=== PATIENT | female | born 1975 | race Caucasian/White ===

== ENCOUNTER 2018-02-02 18:58 | Emergency (ER) | payer SELFPAY ==
[~2018-02-02] VITALS: Ht 170.2 cm; Wt 75.9 kg
[2018-02-02 19:06] VITALS: BP 194/91
[2018-02-02] MEDS ORDERED: METF500T PO (19:36)
[2018-02-02] MEDS ORDERED: LISI30TA4 PO (19:50)
[2018-02-02] MEDS ORDERED: BLOO1EAC70 MC (19:58)
== END 2018-02-02 20:00 | disposition home or self-care (01) ==
LOC: ER 18:59
DX: E11.9 Type 2 diabetes mellitus without complications (principal); I10 Essential (primary) hypertension; Z79.84 Long term (current) use of oral hypoglycemic drugs; Z79.899 Other long term (current) drug therapy; Z56.0 Unemployment, unspecified; Z60.2 Problems related to living alone
CPT/HCPCS: 82948; 99283

== ENCOUNTER 2018-02-24 10:13 | Emergency (ER) | payer MEDICARE, MEDICAID ==
[~2018-02-24] VITALS: Ht 172.7 cm; Wt 74.1 kg
[~2018-02-24 10:13] MED LIST: BLOO1EAC70 MC; LISI30TA4 PO
[2018-02-24 12:24] LABS: ALANINE AMINOTRANSFERASE 19 U/L (12-78); ALBUMIN 3.9 G/DL (3.4-5.0); ALKALINE PHOSPHATASE 80 IU/L (46-116); ANION GAP 8 (8-16); ASPARTATE AMINO TRANSFERASE 15 U/L (10-37); BILIRUBIN,TOTAL 0.3 MG/DL (0.1-1.0); BLOOD UREA NITROGEN 12 MG/DL (7-18); BUN/CREATININE RATIO 20.7 (6.6-38.0); CALCIUM 8.9 MG/DL (8.5-10.1); CHLORIDE 101 MMOL/L (99-107); CREATININE 0.58 MG/DL (0.40-0.90); GLUCOSE 84 MG/DL (70-104); POTASSIUM 3.9 MMOL/L (3.5-5.1); SODIUM 136 MMOL/L (135-145); TOTAL CARBON DIOXIDE 27.5 MMOL/L (24-32); TOTAL PROTEIN 7.8 G/DL (6.4-8.2); eGFR > 90 ML/MIN
[2018-02-24 12:46] LABS: BASOPHILS % (AUTO) 0.2 % (0-1); EOSINOPHILS # (AUTO) 0.2 X10'3 (0-0.9); EOSINOPHILS % (AUTO) 2.5 % (0-6); HEMATOCRIT 35.6 % (35.0-45.0); HEMOGLOBIN 11.5 g/dl (12.0-16.0); LYMPHOCYTES # (AUTO) 2.3 X10'3 (1.1-4.8); LYMPHOCYTES % (AUTO) 35.1 % (21-51); MEAN CORPUSCULAR HEMOGLOBIN 22.8 PG (27.0-31.0); MEAN CORPUSCULAR HGB CONC 32.3 % (33.0-36.5); MEAN CORPUSCULAR VOLUME 70.4 FL (78-98); MEAN PLATELET VOLUME 8.5 FL (7.4-10.4); MONOCYTES # (AUTO) 0.5 X10'3 (0-0.9); MONOCYTES % (AUTO) 7.2 % (2-12); NEUTROPHILS # (AUTO) 3.6 X10'3 (1.8-7.7); PLATELET COUNT 328 X10'3 (140-440); RED BLOOD COUNT 5.06 X10'6 (4.20-5.60); RED CELL DISTRIBUTION WIDTH 26.9 % (11.5-14.5); WHITE BLOOD COUNT 6.6 X10'3 (4.5-11.0)
[2018-02-24 13:09] LABS: ANISOCYTOSIS 3+; ELLIPTOCYTES FEW; PLATELET ESTIMATE NORMAL
[2018-02-24 13:23] VITALS: BP 151/79
== END 2018-02-24 13:28 | disposition home or self-care (01) ==
LOC: ER 10:14
DX: M54.12 Radiculopathy, cervical region (principal); M79.602 Pain in left arm; I10 Essential (primary) hypertension; E11.9 Type 2 diabetes mellitus without complications; Z56.0 Unemployment, unspecified; Z79.899 Other long term (current) drug therapy
CPT/HCPCS: 36415; 71045; 80053; 83735; 83880; 84484; 85025; 93005; 99285

== ENCOUNTER 2018-04-21 11:11 | Inpatient (IN) | payer MEDICARE, MEDICAID ==
[2018-04-21] VITALS (12 sets, daily range): BP systolic 106–142; BP diastolic 65–83
[~2018-04-21] VITALS: Ht 172.7 cm; Wt 87.4 kg
[2018-04-21] MEDS ORDERED: LIDOcaine/PRILOcaine 5gm cream TP ONE (12:05)
[2018-04-21] MEDS ORDERED: diphenhydrAMINE 25mg capsule PO ONE (12:05)
[2018-04-21] MEDS ORDERED: normal saline 1000ml 1,000 ML IV SCH (12:05)
[2018-04-21] MEDS ORDERED: LORazepam 0.5 MG tablet PO ONE (12:05)
[2018-04-21] MEDS ORDERED: METF500T PO (13:03)
[2018-04-21] MEDS ORDERED: ASPI81TA52 PO (13:03)
[2018-04-21] MEDS ORDERED: ATOR40TA3 PO (13:03)
[2018-04-21] MEDS ORDERED: Cephalexin PO (13:03)
[2018-04-21] MEDS ORDERED: FERR325T28 PO (13:03)
[2018-04-21] MEDS ORDERED: METO1TAB38 PO (13:03)
[2018-04-21] MEDS ORDERED: midazolam 2 mg/2 ml injection ONE (14:45)
[2018-04-21] MEDS ORDERED: iohexol 350MG/ML 100ml bottle IV ONE (14:45)
[2018-04-21] MEDS ORDERED: LIDOcaine 1% 30ml preserv. free vial ONE (14:45)
[2018-04-21] MEDS ORDERED: fentaNYL/PF 50MCG/1 ML 2ML syringe ONE (14:45)
[2018-04-21] MEDS ORDERED: heparin 1,000unit/ml 10ml vial 10 ML ONE (14:55)
[2018-04-21] MEDS ORDERED: nitroGLYCERIN-Tridil 50MG/D5W 250 ML IV ONE (14:55)
[2018-04-21] MEDS ORDERED: verapamil 2.5 mg/ml inj IV ONE (15:00)
[2018-04-21] MEDS ORDERED: nitroGLYCERIN 0.4mg SUBLingual tab SL PRN (16:00)
[2018-04-21] MEDS ORDERED: HYDROcodone/acetaminophen 5mg/325mg tablet PO PRN (16:00)
[2018-04-21] MEDS ORDERED: HYDROcodone/acetaminophen 10/325mg tab PO PRN (16:00)
[2018-04-21] MEDS ORDERED: proCHLORperazine 10 MG/2 ml inj IV PRN (16:00)
[2018-04-21] MEDS ORDERED: OXAZEpam 15mg capsule PO PRN (16:00)
[2018-04-21] MEDS ORDERED: ondansetron/PF 4mg/2ml inj IV PRN ×2 (16:00→18:05)
[2018-04-21] MEDS ORDERED: dextrose 50%-water 50ml dispensing syringe IV PRN ×3 (17:55→18:15)
[2018-04-21] MEDS ORDERED: MESSAGE TO NURSING PO ONE ×4 (17:55)
[2018-04-21] MEDS ORDERED: LISI30TA4 PO (17:59)
[2018-04-21] MEDS ORDERED: diphenhydrAMINE 25mg capsule PO PRN (18:05)
[2018-04-21] MEDS ORDERED: dextrose ORAL solution 15 GM/59 ML bottle PO PRN ×2 (18:15)
[2018-04-21] MEDS ORDERED: glucagon, human recombinant 1mg kit SUBCUT PRN (18:15)
[2018-04-21] MEDS ORDERED: MESSAGE TO PHARMACY PO ONE (18:15)
[2018-04-21] MEDS ORDERED: insulin Lispro (HumaLOG) vial - multi-dose SQ SCH (18:15)
[2018-04-21] MEDS ORDERED: METO-395 PO (18:29)
[2018-04-21 19:01] LABS: ALBUMIN 3.6 G/DL (3.4-5.0); ANION GAP 7 (8-16); BLOOD UREA NITROGEN 16 MG/DL (7-18); BUN/CREATININE RATIO 19.3 (6.6-38.0); CALCIUM 8.6 MG/DL (8.5-10.1); CHLORIDE 103 MMOL/L (99-107); CREATININE 0.83 MG/DL (0.40-0.90); GLUCOSE 263 MG/DL (70-104); POTASSIUM 3.9 MMOL/L (3.5-5.1); SODIUM 140 MMOL/L (135-145); eGFR 76 ML/MIN
[2018-04-21 19:06] LABS: PARTIAL THROMBOPLASTIN TIME 29 SECONDS (22-32)
[2018-04-21 19:07] LABS: HEMOGLOBIN A1C 5.7 % (4.5-6.2)
[2018-04-21] MEDS ORDERED: insulin glargine (Lantus) pen - multi-dose SQ SCH (21:00)
[2018-04-21 21:29] LABS: HEMATOCRIT 38.7 % (35.0-45.0); MEAN CORPUSCULAR HEMOGLOBIN 27.1 PG (27.0-31.0); MEAN CORPUSCULAR HGB CONC 33.6 % (33.0-36.5); MEAN CORPUSCULAR VOLUME 80.7 FL (78-98); MEAN PLATELET VOLUME 7.6 FL (7.4-10.4); PLATELET COUNT 339 X10'3 (140-440); RED CELL DISTRIBUTION WIDTH 25.1 % (11.5-14.5); WHITE BLOOD COUNT 7.2 X10'3 (4.5-11.0)
[2018-04-21 22:00] LABS: ABG BASE EXCESS -0.2 mmol/L (-2.0-3.0); ABG OXYGEN SATURATION 96.4 % (95-98); ABG PH (T) 7.419 (7.350-7.450); ABG PO2 (T) 85.3 mmHg (83-108); ALLEN'S TEST Positive; FCOHb 0.4 % (0.5-1.5); FMetHb 0.1 % (0.3-1.12); FO2Hb 95.9 % (94-100); TOTAL HEMOGLOBIN 13.6 G/dl (12.0-16.0)
[2018-04-22] VITALS (11 sets, daily range): BP systolic 92–127; BP diastolic 46–72
[2018-04-22] MEDS: mupirocin 2% nasal ointment 1gm UD NS SCH ×3 (04:44→20:27)
[2018-04-22] MEDS ORDERED: ceFAZolin 1000mg inj ONE (05:11)
[2018-04-22] MEDS ORDERED: cefazolin/dext.iso 2gm/50ml 50 ML IV ONE (05:30)
[2018-04-22] MEDS ORDERED: vancomycin/NS 1 GM ADD-VANTAGE 250 ML IV ONE (05:30)
[2018-04-22] MEDS ORDERED: famotidine 20mg tablet PO ONE (06:00)
[2018-04-22] MEDS ORDERED: LORazepam 2 mg/ml vial IV ONE (06:00)
[2018-04-22 07:09] LABS: ALBUMIN 3.5 G/DL (3.4-5.0); ANION GAP 9 (8-16); BLOOD UREA NITROGEN 14 MG/DL (7-18); BUN/CREATININE RATIO 20.3 (6.6-38.0); CALCIUM 8.6 MG/DL (8.5-10.1); CHLORIDE 105 MMOL/L (99-107); CREATININE 0.69 MG/DL (0.40-0.90); GLUCOSE 86 MG/DL (70-104); POTASSIUM 4.3 MMOL/L (3.5-5.1); SODIUM 141 MMOL/L (135-145); TOTAL CARBON DIOXIDE 27.3 MMOL/L (24-32); eGFR > 90 ML/MIN
[2018-04-22] MEDS ORDERED: metoprolol succinate 25mg (24-HOUR) SR. Tablet PO SCH (08:00)
[2018-04-22] MEDS ORDERED: aspirin 81mg tablet.DR PO SCH (08:00)
[2018-04-22] MEDS ORDERED: atorvastatin 20mg tablet PO SCH (08:00)
[2018-04-22] MEDS ORDERED: lisinopril 10 MG tablet PO SCH (08:00)
[2018-04-22] MEDS ORDERED: ferrous sulfate 325mg tablet PO SCH (08:00)
[2018-04-22] MEDS ORDERED: heparin 10,000 units/1 ML INJ ONE ×2 (09:00→11:00)
[2018-04-22] MEDS: insulin Lispro (HumaLOG) vial - multi-dose SQ SCH ×3 (09:00→18:00)
[2018-04-22] MEDS ORDERED: papaverine 30 mg/ml 2ml inj. ONE ×2 (09:00)
[2018-04-22 09:22] LABS: BASOPHILS # (AUTO) 0.1 X10'3 (0-0.2); BASOPHILS % (AUTO) 0.7 % (0-1); EOSINOPHILS # (AUTO) 0.3 X10'3 (0-0.9); EOSINOPHILS % (AUTO) 3.9 % (0-6); HEMATOCRIT 42.3 % (35.0-45.0); HEMOGLOBIN 14.1 g/dl (12.0-16.0); LYMPHOCYTES # (AUTO) 3.2 X10'3 (1.1-4.8); MEAN CORPUSCULAR HEMOGLOBIN 27.2 PG (27.0-31.0); MEAN CORPUSCULAR HGB CONC 33.3 % (33.0-36.5); MEAN CORPUSCULAR VOLUME 81.7 FL (78-98); MONOCYTES # (AUTO) 0.6 X10'3 (0-0.9); MONOCYTES % (AUTO) 8.5 % (2-12); NEUTROPHILS # (AUTO) 3.3 X10'3 (1.8-7.7); NEUTROPHILS % (AUTO) 43.9 % (42-75); RED BLOOD COUNT 5.18 X10'6 (4.20-5.60); RED CELL DISTRIBUTION WIDTH 25.8 % (11.5-14.5)
[2018-04-22 09:25] LABS: PLATELET COUNT 321 X10'3 (140-440); WHITE BLOOD COUNT 5.1 X10'3 (4.5-11.0)
[2018-04-22] MEDS ORDERED: MESSAGE TO NURSING PO ONE (10:00)
[2018-04-22 10:33] LABS: PLATELET ESTIMATE NORMAL
[2018-04-22 10:34] LABS: ANISOCYTOSIS 3+
[2018-04-22] MEDS ORDERED: cefazolin/dext.iso 2gm/100ml 100 ML IV ONE (10:45)
[2018-04-22] MEDS ORDERED: LIDOcaine 2% (20 mg/ml) 5ml cardiac syringe ONE (11:00)
[2018-04-22] MEDS ORDERED: albumin (human) 25% 100 ML IV solution IV ONE (11:00)
[2018-04-22] MEDS ORDERED: sodium bicarbonate (8.4%) 1 mEq/ml syringe ONE (11:00)
[2018-04-22] MEDS ORDERED: magnesium sulf 1 GM/2 ML ONE (11:00)
[2018-04-22] MEDS ORDERED: potassium Cl 2 mEq/ml inj IV ONE (11:00)
[2018-04-22] MEDS ORDERED: phenylephrine 10mg/ml inj. ONE ×2 (11:00→13:21)
[2018-04-22] MEDS ORDERED: aminocaproic acid 250 MG/1 ML inj. ONE ×2 (11:00→11:45)
[2018-04-22] MEDS ORDERED: calcium chloride 100 MG/1 ML inj IV ONE (11:00)
[2018-04-22] MEDS ORDERED: heparin 1,000 units/ml 10ml inj ONE (11:00)
[2018-04-22] MEDS ORDERED: MIDAZolam 1mg/ml 10ml vial ONE (11:12)
[2018-04-22] MEDS ORDERED: SUFENTANIL CITRATE 50 MCG/ML 2ml ampule IV ONE (11:12)
[2018-04-22] MEDS ORDERED: propofol inj 20 ML IV ONE (11:13)
[2018-04-22] MEDS ORDERED: pancuronium br 1mg/ml inj IV ONE (11:13)
[2018-04-22] MEDS ORDERED: LIDOcaine 2% (20mg/ml) 5ml vial ONE (11:13)
[2018-04-22] MEDS ORDERED: sevoflurane 250ml liquid IH ONE (11:45)
[2018-04-22] MEDS ORDERED: protamine sulf. 10mg/ml inj. IV ONE (11:45)
[2018-04-22 12:35] LABS: ABG BASE EXCESS -2.3 mmol/L (-2.0-3.0); ABG HCO3 22.7 mmol/L (22.0-26.0); ABG OXYGEN SATURATION 99.4 % (95-98); ABG PCO2 40.1 mmHg (35.0-45.0); ABG PH 7.371 (7.350-7.450); ABG PO2 374.6 mmHg (60.0-100.0); CL (ABG) 110 mmol/L (99-107); FCOHb 0.2 % (0.5-1.5); FMetHb 0.2 % (0.3-1.12); GLUCOSE (ABG) 84 mg/dl (70-105); IONIZED CA (ABG) 1.12 mmol/L (1.03-1.32); NA (ABG) 136 mmol/L (135-145); TOTAL HEMOGLOBIN 13.1 G/dl (12.0-16.0)
[2018-04-22] MEDS ORDERED: heparin 10,000 units/1 ML INJ IR ONE (12:56)
[2018-04-22] MEDS ORDERED: papaverine 30 mg/ml 2ml inj. IA ONE (12:57)
[2018-04-22 13:46] LABS: ABG BASE EXCESS VENOUS -8.8 mmol/L; ABG HCO3 VENOUS 16.3 mmol/L; ABG PCO2 VENOUS 32.1 mmHg; ABG PO2 VENOUS 49.9 mmHg; CL (ABG) 106 mmol/L (99-107); FCOHb VENOUS 0.3 %; FHHb VENOUS 16.9 %; FMetHb VENOUS 0.5 %; FO2Hb VENOUS 82.3 %; GLUCOSE (ABG) 63 mg/dl (70-105); IONIZED CA (ABG) 1.08 mmol/L (1.03-1.32); K (ABG) 4.1 mmol/L (3.3-5.1); NA (ABG) 130 mmol/L (135-145); TOTAL HEMOGLOBIN 9.2 G/dl (12.0-16.0)
[2018-04-22 14:10] LABS: ABG BASE EXCESS -2.1 mmol/L (-2.0-3.0); ABG HCO3 22.8 mmol/L (22.0-26.0); ABG OXYGEN SATURATION 98.8 % (95-98); ABG PCO2 39.2 mmHg (35.0-45.0); ABG PH 7.382 (7.350-7.450); ABG PO2 348.4 mmHg (60.0-100.0); CL (ABG) 103 mmol/L (99-107); FCOHb 0.3 % (0.5-1.5); FMetHb 0.3 % (0.3-1.12); FO2Hb 98.2 % (94-100); GLUCOSE (ABG) 120 mg/dl (70-105); IONIZED CA (ABG) 0.97 mmol/L (1.03-1.32); K (ABG) 4.9 mmol/L (3.3-5.1); NA (ABG) 130 mmol/L (135-145); TOTAL HEMOGLOBIN 9.7 G/dl (12.0-16.0)
[2018-04-22 14:35] LABS: ABG HCO3 23.6 mmol/L (22.0-26.0); ABG OXYGEN SATURATION 98.9 % (95-98); ABG PCO2 44.3 mmHg (35.0-45.0); ABG PH 7.345 (7.350-7.450); ABG PO2 293.6 mmHg (60.0-100.0); CL (ABG) 106 mmol/L (99-107); FCOHb 0.3 % (0.5-1.5); FMetHb 0.3 % (0.3-1.12); FO2Hb 98.3 % (94-100); GLUCOSE (ABG) 157 mg/dl (70-105); IONIZED CA (ABG) 1.03 mmol/L (1.03-1.32); K (ABG) 4.7 mmol/L (3.3-5.1); NA (ABG) 132 mmol/L (135-145); TOTAL HEMOGLOBIN 10.1 G/dl (12.0-16.0)
[2018-04-22] MEDS ORDERED: rocuronium 10mg/ml inj IV ONE (14:45)
[2018-04-22 15:05] LABS: ACT @ 1.70 U 289 SEC (193-297); ACT @ 2.84 U 394 SEC (260-420); BASELINE ACT 151 SEC (101-148); PATIENT WEIGHT 84.0k KG
[2018-04-22 15:06] LABS: ABG BASE EXCESS 1.3 mmol/L (-2.0-3.0); ABG OXYGEN SATURATION 98.8 % (95-98); ABG PCO2 48.6 mmHg (35.0-45.0); ABG PH 7.363 (7.350-7.450); ABG PO2 271.2 mmHg (60.0-100.0); CL (ABG) 103 mmol/L (99-107); FCOHb 0.3 % (0.5-1.5); FMetHb 0.5 % (0.3-1.12); GLUCOSE (ABG) 200 mg/dl (70-105); IONIZED CA (ABG) 1.36 mmol/L (1.03-1.32); K (ABG) 4.7 mmol/L (3.3-5.1); NA (ABG) 132 mmol/L (135-145); TOTAL HEMOGLOBIN 9.1 G/dl (12.0-16.0)
[2018-04-22 15:46] LABS: ABG BASE EXCESS VENOUS 0.9 mmol/L; ABG HCO3 VENOUS 27.6 mmol/L; ABG PCO2 VENOUS 54.1 mmHg; ABG PO2 VENOUS 57.2 mmHg; CL (ABG) 106 mmol/L (99-107); FCOHb VENOUS 0.3 %; FHHb VENOUS 12.6 %; FMetHb VENOUS 0.3 %; FO2Hb VENOUS 86.8 %; GLUCOSE (ABG) 200 mg/dl (70-105); IONIZED CA (ABG) 1.16 mmol/L (1.03-1.32); K (ABG) 4.3 mmol/L (3.3-5.1); NA (ABG) 134 mmol/L (135-145); TOTAL HEMOGLOBIN 10.2 G/dl (12.0-16.0)
[2018-04-22] MEDS ORDERED: metoclopramide 5 mg/ml inj IV PRN (16:10)
[2018-04-22] MEDS ORDERED: sodium phosphate inj. 30 MMOL in dextrose 5%-water 250 ML IV PRN (16:10)
[2018-04-22] MEDS ORDERED: nitroGLYCERIN-Tridil 50MG/D5W 250 ML IV PRN (16:10)
[2018-04-22] MEDS ORDERED: sodium phosphate inj. 15 MMOL in dextrose 5%-water 150 ML IV PRN (16:10)
[2018-04-22] MEDS ORDERED: insulin regular, human inj. 100 UNITS in normal saline 100ml IV soln 100 ML IV SCH ×2 (16:10)
[2018-04-22] MEDS: sodium chloride 0.45% 1,000 ML IV SCH (16:10)
[2018-04-22] MEDS ORDERED: HYDROcodone/acetaminophen 10/325mg tab PO PRN (16:10)
[2018-04-22] MEDS ORDERED: DOPamine 400mg/D5W 250ml 250 ML IV PRN (16:10)
[2018-04-22] MEDS ORDERED: ondansetron/PF 4mg/2ml inj IV PRN (16:10)
[2018-04-22] MEDS ORDERED: Neutra Phos packet PO PRN (16:10)
[2018-04-22] MEDS ORDERED: dextrose 50%-water 50ml dispensing syringe IV PRN (16:10)
[2018-04-22] MEDS ORDERED: pantoprazole 40 MG vial IV ONE (16:10)
[2018-04-22] MEDS ORDERED: acetaminophen 325mg tablet PO PRN (16:10)
[2018-04-22] MEDS ORDERED: normal saline 250ml IV soln 250 ML IV PRN (16:10)
[2018-04-22] MEDS ORDERED: niCARDipine-NS 40mg/200ml IVPB 200 ML IV PRN (16:10)
[2018-04-22] MEDS ORDERED: morphine 4 MG/ML inj SYRINge IV PRN (16:10)
[2018-04-22] MEDS ORDERED: potassium Cl 20mEq/100mL bag 100 ML IV PRN (16:10)
[2018-04-22] MEDS ORDERED: magnesium hydroxide 30ml (MOM) UD suspension PO PRN (16:10)
[2018-04-22 16:31] LABS: ABG BASE EXCESS -2.9 mmol/L (-2.0-3.0); ABG HCO3 23.1 mmol/L (22.0-26.0); ABG PH (T) 7.329 (7.350-7.450); ABG PO2 (T) 197.4 mmHg (83-108); FCOHb 0.3 % (0.5-1.5); FMetHb 0.4 % (0.3-1.12); FO2Hb 98.3 % (94-100); MINUTE VOLUME 9 L/min; PEEP 5 cm H2O; RESPIRATORY RATE 12 b/min; RESPIRATORY RATE (OBSERVED) 12 b/min; TIDAL VOLUME 600 mL; TOTAL HEMOGLOBIN 13.1 G/dl (12.0-16.0)
[2018-04-22] MEDS ORDERED: morphine 4 MG/ML inj SYRINge ONE (16:36)
[2018-04-22 17:08] LABS: ALANINE AMINOTRANSFERASE 22 U/L (12-78); ALBUMIN 2.8 G/DL (3.4-5.0); ALBUMIN/GLOBULIN RATIO 1.1 (1.1-1.5); ALKALINE PHOSPHATASE 46 IU/L (46-116); ANION GAP 10 (8-16); ASPARTATE AMINO TRANSFERASE 29 U/L (10-37); BILIRUBIN,TOTAL 0.3 MG/DL (0.1-1.0); BLOOD UREA NITROGEN 12 MG/DL (7-18); BUN/CREATININE RATIO 14.8 (6.6-38.0); CHLORIDE 107 MMOL/L (99-107); CREATININE 0.81 MG/DL (0.40-0.90); GLUCOSE 151 MG/DL (70-104); MAGNESIUM 2.7 MG/DL (1.5-2.4); PHOSPHORUS 4.1 MG/DL (2.3-4.5); SODIUM 143 MMOL/L (135-145); TOTAL CARBON DIOXIDE 25.8 MMOL/L (24-32); TOTAL PROTEIN 5.3 G/DL (6.4-8.2); eGFR 78 ML/MIN
[2018-04-22] MEDS: albumin (Human) 5% 250ml 250 ML IV PRN ×2 (17:17→18:54)
[2018-04-22] MEDS: morphine 4 MG/ML inj SYRINge IV PRN ×3 (17:39→23:12)
[2018-04-22] MEDS: potassium Cl 20mEq/100mL bag 100 ML IV PRN (17:47)
[2018-04-22] MEDS: NORMAL SALINE IV SCH ×2 (17:48)
[2018-04-22] MEDS: INSULIN REGULAR IV SCH ×2 (17:48)
[2018-04-22] MEDS: HUMAN IV SCH ×2 (17:48)
[2018-04-22] MEDS ORDERED: insulin Lispro (HumaLOG) vial - multi-dose SQ SCH (18:00)
[2018-04-22 18:44] LABS: BASOPHILS % (AUTO) 0.1 % (0-1); EOSINOPHILS # (AUTO) 0.1 X10'3 (0-0.9); HEMATOCRIT 36.5 % (35.0-45.0); HEMOGLOBIN 12.3 g/dl (12.0-16.0); LYMPHOCYTES # (AUTO) 0.9 X10'3 (1.1-4.8); LYMPHOCYTES % (AUTO) 6.7 % (21-51); MEAN CORPUSCULAR HEMOGLOBIN 27.4 PG (27.0-31.0); MEAN CORPUSCULAR HGB CONC 33.7 % (33.0-36.5); MEAN CORPUSCULAR VOLUME 81.2 FL (78-98); MONOCYTES # (AUTO) 0.7 X10'3 (0-0.9); MONOCYTES % (AUTO) 4.8 % (2-12); NEUTROPHILS # (AUTO) 12.1 X10'3 (1.8-7.7); NEUTROPHILS % (AUTO) 87.4 % (42-75); RED BLOOD COUNT 4.49 X10'6 (4.20-5.60); RED CELL DISTRIBUTION WIDTH 25.3 % (11.5-14.5); WHITE BLOOD COUNT 13.8 X10'3 (4.5-11.0)
[2018-04-22 18:45] LABS: MEAN PLATELET VOLUME 7.6 FL (7.4-10.4); PLATELET COUNT 249 X10'3 (140-440)
[2018-04-22 18:46] LABS: INR 1.1 INR; PARTIAL THROMBOPLASTIN TIME 25 SECONDS (22-32); PROTHROMBIN TIME 10.7 SECONDS (9.0-12.0)
[2018-04-22 19:04] LABS: ANISOCYTOSIS 3+; PLATELET ESTIMATE NORMAL
[2018-04-22 19:05] LABS: BURR CELLS FEW; ELLIPTOCYTES FEW
[2018-04-22] MEDS: docusate sod 100mg capsule PO SCH (20:00)
[2018-04-22] MEDS: vancomycin/NS 1 GM ADD-VANTAGE 250 ML IV SCH (20:26)
[2018-04-22] MEDS: ketorolac tromethamine 15mg/ml inj. IV SCH (20:27)
[2018-04-22] MEDS ORDERED: NORepinephrine 8mg/ 250ml NS 250 ML IV SCH (22:00)
[2018-04-22 22:26] LABS: ABG BASE EXCESS -3.4 mmol/L (-2.0-3.0); ABG HCO3 22.4 mmol/L (22.0-26.0); ABG OXYGEN SATURATION 97.9 % (95-98); ABG PH (T) 7.334 (7.350-7.450); ABG PO2 (T) 128.3 mmHg (83-108); FCOHb 0.2 % (0.5-1.5); FMetHb 0.2 % (0.3-1.12); FO2Hb 97.5 % (94-100); MINUTE VOLUME 9 L/min; PATIENT TEMPERATURE 36.9; PEEP 5 cm H2O; RESPIRATORY RATE 8 b/min; RESPIRATORY RATE (OBSERVED) 13 b/min; TIDAL VOLUME 600 mL; TOTAL HEMOGLOBIN 12.6 G/dl (12.0-16.0)
[2018-04-23] VITALS (22 sets, daily range): BP systolic 92–114; BP diastolic 47–85
[2018-04-23 00:16] LABS: ABG BASE EXCESS -4.2 mmol/L (-2.0-3.0); ABG HCO3 21.5 mmol/L (22.0-26.0); ABG OXYGEN SATURATION 97.3 % (95-98); ABG PCO2 (T) 42.1 mmHg (32.0-45.0); ABG PH (T) 7.327 (7.350-7.450); FCOHb 0.2 % (0.5-1.5); FMetHb 0.3 % (0.3-1.12); FO2Hb 96.8 % (94-100); MINUTE VOLUME 9 L/min; PATIENT TEMPERATURE 37.1; PEEP 5 cm H2O; RESPIRATORY RATE (OBSERVED) 14 b/min; TOTAL HEMOGLOBIN 12.7 G/dl (12.0-16.0)
[2018-04-23] MEDS: ketorolac tromethamine 15mg/ml inj. IV SCH ×3 (01:53→13:40)
[2018-04-23 03:06] LABS: HEMOGLOBIN 11.3 g/dl (12.0-16.0); MEAN CORPUSCULAR HEMOGLOBIN 27.2 PG (27.0-31.0); MEAN CORPUSCULAR HGB CONC 33.2 % (33.0-36.5); MEAN CORPUSCULAR VOLUME 82.1 FL (78-98); MEAN PLATELET VOLUME 8.1 FL (7.4-10.4); PLATELET COUNT 217 X10'3 (140-440); RED BLOOD COUNT 4.15 X10'6 (4.20-5.60); RED CELL DISTRIBUTION WIDTH 25.5 % (11.5-14.5); WHITE BLOOD COUNT 12.8 X10'3 (4.5-11.0)
[2018-04-23 03:18] LABS: ALANINE AMINOTRANSFERASE 23 U/L (12-78); ALBUMIN 3.4 G/DL (3.4-5.0); ALBUMIN/GLOBULIN RATIO 1.3 (1.1-1.5); ALKALINE PHOSPHATASE 38 IU/L (46-116); ANION GAP 10 (8-16); ASPARTATE AMINO TRANSFERASE 41 U/L (10-37); BILIRUBIN,TOTAL 0.3 MG/DL (0.1-1.0); BLOOD UREA NITROGEN 11 MG/DL (7-18); BUN/CREATININE RATIO 14.9 (6.6-38.0); CALCIUM 8.1 MG/DL (8.5-10.1); CHLORIDE 109 MMOL/L (99-107); CREATININE 0.74 MG/DL (0.40-0.90); GLUCOSE 127 MG/DL (70-104); MAGNESIUM 2.3 MG/DL (1.5-2.4); PHOSPHORUS 3.7 MG/DL (2.3-4.5); POTASSIUM 3.9 MMOL/L (3.5-5.1); SODIUM 146 MMOL/L (135-145); TOTAL CARBON DIOXIDE 26.9 MMOL/L (24-32); TOTAL PROTEIN 6.1 G/DL (6.4-8.2); eGFR 87 ML/MIN
[2018-04-23 03:35] LABS: ANISOCYTOSIS 3+; PLATELET ESTIMATE NORMAL; TOTAL CELLS COUNTED 100
[2018-04-23 03:39] LABS: PARTIAL THROMBOPLASTIN TIME 25 SECONDS (22-32)
[2018-04-23] MEDS: morphine 4 MG/ML inj SYRINge IV PRN ×2 (03:55→23:09)
[2018-04-23] MEDS: HYDROcodone/acetaminophen 10/325mg tab PO PRN ×3 (04:18→18:18)
[2018-04-23 05:15] LABS: ACTIVATED CLOTTING TIME 109 SEC (101-148)
[2018-04-23] MEDS: HUMAN IV SCH ×4 (05:30→07:06)
[2018-04-23] MEDS: INSULIN REGULAR IV SCH ×4 (05:30→07:06)
[2018-04-23] MEDS: NORMAL SALINE IV SCH ×4 (05:30→07:06)
[2018-04-23] MEDS: potassium Cl 20mEq/100mL bag 100 ML IV PRN (05:45)
[2018-04-23] MEDS: mupirocin 2% nasal ointment 1gm UD NS SCH ×2 (08:39→21:41)
[2018-04-23] MEDS: vancomycin/NS 1 GM ADD-VANTAGE 250 ML IV SCH ×2 (08:39→21:41)
[2018-04-23] MEDS: docusate sod 100mg capsule PO SCH ×2 (08:40→20:00)
[2018-04-23] MEDS: aspirin 325mg tablet, delayed-release (Ecotrin) PO SCH (08:44)
[2018-04-23] MEDS: ceFAZolin 1GM/D5W- ADD-VANTAGE 50 ML IV SCH ×3 (08:44→15:52)
[2018-04-23] MEDS: metoprolol tartrate 12.5mg (1/2 tablet) PO SCH ×3 (08:45→21:41)
[2018-04-23] MEDS: atorvastatin 10mg tablet PO SCH (08:45)
[2018-04-23] MEDS: insulin Lispro (HumaLOG) vial - multi-dose SQ SCH (09:00)
[2018-04-23] MEDS ORDERED: dextrose ORAL solution 15 GM/59 ML bottle PO PRN ×2 (10:00)
[2018-04-23] MEDS ORDERED: insulin Lispro (HumaLOG) vial - multi-dose SQ SCH (10:00)
[2018-04-23] MEDS ORDERED: glucagon, human recombinant 1mg kit SUBCUT PRN (10:00)
[2018-04-23] MEDS ORDERED: dextrose 50%-water 50ml dispensing syringe IV PRN ×2 (10:00)
[2018-04-23] MEDS: magnesium 1gm/100ml D5W IVPB 100 ML IV PRN ×4 (13:27→19:49)
[2018-04-23 17:39] LABS: MAGNESIUM 2.4 MG/DL (1.5-2.4); POTASSIUM 4.1 MMOL/L (3.5-5.1)
[2018-04-23] MEDS: insulin glargine (Lantus) pen - multi-dose SQ SCH (21:00)
[2018-04-23] MEDS: lactobacillus rhamnosus 10,000 MMU CELLS/CAPSULE PO SCH (21:41)
[2018-04-24] VITALS (24 sets, daily range): BP systolic 91–140; BP diastolic 43–71
[2018-04-24] MEDS: ceFAZolin 1GM/D5W- ADD-VANTAGE 50 ML IV SCH ×2 (00:43→07:53)
[2018-04-24] MEDS: HYDROcodone/acetaminophen 10/325mg tab PO PRN ×3 (01:53→19:54)
[2018-04-24 02:47] LABS: HEMATOCRIT 29.2 % (35.0-45.0); HEMOGLOBIN 9.8 g/dl (12.0-16.0); MEAN CORPUSCULAR HEMOGLOBIN 27.6 PG (27.0-31.0); MEAN CORPUSCULAR HGB CONC 33.5 % (33.0-36.5); MEAN CORPUSCULAR VOLUME 82.4 FL (78-98); MEAN PLATELET VOLUME 8.3 FL (7.4-10.4); PLATELET COUNT 173 X10'3 (140-440); RED BLOOD COUNT 3.54 X10'6 (4.20-5.60); RED CELL DISTRIBUTION WIDTH 25.8 % (11.5-14.5); WHITE BLOOD COUNT 10.1 X10'3 (4.5-11.0)
[2018-04-24 03:01] LABS: ANION GAP 9 (8-16); BLOOD UREA NITROGEN 12 MG/DL (7-18); BUN/CREATININE RATIO 16.2 (6.6-38.0); CALCIUM 7.6 MG/DL (8.5-10.1); CHLORIDE 104 MMOL/L (99-107); CREATININE 0.74 MG/DL (0.40-0.90); GLUCOSE 150 MG/DL (70-104); MAGNESIUM 2.3 MG/DL (1.5-2.4); PHOSPHORUS 2.7 MG/DL (2.3-4.5); POTASSIUM 4.4 MMOL/L (3.5-5.1); SODIUM 140 MMOL/L (135-145); TOTAL CARBON DIOXIDE 27.3 MMOL/L (24-32); eGFR 87 ML/MIN
[2018-04-24 03:17] LABS: ANISOCYTOSIS 3+; PLATELET ESTIMATE NORMAL; TOTAL CELLS COUNTED 100
[2018-04-24] MEDS: potassium Cl 20mEq/100mL bag 100 ML IV PRN ×2 (04:41→12:07)
[2018-04-24] MEDS: sodium chloride 0.45% 1,000 ML IV SCH (06:45)
[2018-04-24] MEDS: metoprolol tartrate 12.5mg (1/2 tablet) PO SCH ×2 (07:53→19:54)
[2018-04-24] MEDS: mupirocin 2% nasal ointment 1gm UD NS SCH (07:53)
[2018-04-24] MEDS: docusate sod 100mg capsule PO SCH ×2 (07:53→19:54)
[2018-04-24] MEDS: aspirin 325mg tablet, delayed-release (Ecotrin) PO SCH (07:53)
[2018-04-24] MEDS: lactobacillus rhamnosus 10,000 MMU CELLS/CAPSULE PO SCH ×2 (07:53→19:54)
[2018-04-24] MEDS: atorvastatin 10mg tablet PO SCH (07:53)
[2018-04-24] MEDS: pantoprazole 40mg Tablet.DR PO SCH (07:53)
[2018-04-24] MEDS: magnesium 1gm/100ml D5W IVPB 100 ML IV PRN ×2 (09:14→10:50)
[2018-04-24] MEDS: diphenhydrAMINE 25mg capsule PO PRN (10:50)
[2018-04-24 17:53] LABS: POTASSIUM 4.1 MMOL/L (3.5-5.1)
[2018-04-24] MEDS: insulin glargine (Lantus) pen - multi-dose SQ SCH (21:00)
[2018-04-25] VITALS (24 sets, daily range): BP systolic 92–153; BP diastolic 45–83
[2018-04-25] MEDS: HYDROcodone/acetaminophen 10/325mg tab PO PRN ×3 (03:35→19:06)
[2018-04-25 04:25] LABS: ALBUMIN 2.8 G/DL (3.4-5.0); ANION GAP 8 (8-16); BLOOD UREA NITROGEN 10 MG/DL (7-18); BUN/CREATININE RATIO 18.9 (6.6-38.0); CALCIUM 8.4 MG/DL (8.5-10.1); CHLORIDE 105 MMOL/L (99-107); CREATININE 0.53 MG/DL (0.40-0.90); GLUCOSE 116 MG/DL (70-104); POTASSIUM 4.2 MMOL/L (3.5-5.1); SODIUM 142 MMOL/L (135-145); TOTAL CARBON DIOXIDE 29.4 MMOL/L (24-32); eGFR > 90 ML/MIN
[2018-04-25 04:36] LABS: BASOPHILS % (AUTO) 0.2 % (0-1); EOSINOPHILS # (AUTO) 0.4 X10'3 (0-0.9); EOSINOPHILS % (AUTO) 5.8 % (0-6); HEMATOCRIT 28.1 % (35.0-45.0); HEMOGLOBIN 9.3 g/dl (12.0-16.0); LYMPHOCYTES # (AUTO) 1.5 X10'3 (1.1-4.8); LYMPHOCYTES % (AUTO) 20.9 % (21-51); MEAN CORPUSCULAR HEMOGLOBIN 27.4 PG (27.0-31.0); MEAN CORPUSCULAR HGB CONC 33.2 % (33.0-36.5); MEAN CORPUSCULAR VOLUME 82.5 FL (78-98); MEAN PLATELET VOLUME 8.2 FL (7.4-10.4); MONOCYTES # (AUTO) 0.8 X10'3 (0-0.9); MONOCYTES % (AUTO) 10.4 % (2-12); NEUTROPHILS # (AUTO) 4.5 X10'3 (1.8-7.7); NEUTROPHILS % (AUTO) 62.7 % (42-75); PLATELET COUNT 182 X10'3 (140-440); RED BLOOD COUNT 3.41 X10'6 (4.20-5.60); RED CELL DISTRIBUTION WIDTH 25.5 % (11.5-14.5); WHITE BLOOD COUNT 7.2 X10'3 (4.5-11.0)
[2018-04-25] MEDS: potassium Cl 20mEq/100mL bag 100 ML IV PRN (04:39)
[2018-04-25] MEDS: docusate sod 100mg capsule PO SCH ×2 (07:19→19:05)
[2018-04-25] MEDS: magnesium 4gm in 100ml NS 100 ML IV PRN (07:19)
[2018-04-25] MEDS: lactobacillus rhamnosus 10,000 MMU CELLS/CAPSULE PO SCH ×2 (07:19→19:05)
[2018-04-25] MEDS: atorvastatin 10mg tablet PO SCH (07:20)
[2018-04-25] MEDS: aspirin 325mg tablet, delayed-release (Ecotrin) PO SCH (07:20)
[2018-04-25] MEDS: pantoprazole 40mg Tablet.DR PO SCH (07:20)
[2018-04-25] MEDS: metoprolol tartrate 12.5mg (1/2 tablet) PO SCH ×2 (07:20→19:05)
[2018-04-25] MEDS ORDERED: magnesium citrate 296ml oral solution PO ONE (08:40)
[2018-04-25] MEDS: diphenhydrAMINE 25mg capsule PO PRN (09:38)
[2018-04-25 17:18] LABS: MAGNESIUM 1.7 MG/DL (1.5-2.4)
[2018-04-25 17:59] LABS: MAGNESIUM 2.2 MG/DL (1.5-2.4)
[2018-04-25] MEDS: insulin glargine (Lantus) pen - multi-dose SQ SCH (21:00)
[2018-04-26] VITALS (24 sets, daily range): BP systolic 97–149; BP diastolic 48–87
[2018-04-26] MEDS: HYDROcodone/acetaminophen 10/325mg tab PO PRN ×4 (00:35→20:17)
[2018-04-26 06:04] LABS: BASOPHILS # (AUTO) 0.1 X10'3 (0-0.2); BASOPHILS % (AUTO) 0.9 % (0-1); EOSINOPHILS # (AUTO) 0.4 X10'3 (0-0.9); EOSINOPHILS % (AUTO) 6.3 % (0-6); HEMATOCRIT 29.5 % (35.0-45.0); HEMOGLOBIN 9.6 g/dl (12.0-16.0); LYMPHOCYTES # (AUTO) 1.5 X10'3 (1.1-4.8); LYMPHOCYTES % (AUTO) 25.4 % (21-51); MEAN CORPUSCULAR HGB CONC 32.5 % (33.0-36.5); MEAN PLATELET VOLUME 8.4 FL (7.4-10.4); MONOCYTES # (AUTO) 0.5 X10'3 (0-0.9); MONOCYTES % (AUTO) 8.9 % (2-12); NEUTROPHILS # (AUTO) 3.4 X10'3 (1.8-7.7); NEUTROPHILS % (AUTO) 58.5 % (42-75); RED BLOOD COUNT 3.55 X10'6 (4.20-5.60); RED CELL DISTRIBUTION WIDTH 24.9 % (11.5-14.5); WHITE BLOOD COUNT 5.9 X10'3 (4.5-11.0)
[2018-04-26 06:08] LABS: PLATELET COUNT 195 X10'3 (140-440)
[2018-04-26 06:43] LABS: ALBUMIN 2.6 G/DL (3.4-5.0); ANION GAP 6 (8-16); BLOOD UREA NITROGEN 13 MG/DL (7-18); BUN/CREATININE RATIO 22.8 (6.6-38.0); CALCIUM 8.4 MG/DL (8.5-10.1); CHLORIDE 103 MMOL/L (99-107); CREATININE 0.57 MG/DL (0.40-0.90); GLUCOSE 102 MG/DL (70-104); MAGNESIUM 1.9 MG/DL (1.5-2.4); PHOSPHORUS 4.4 MG/DL (2.3-4.5); POTASSIUM 4.3 MMOL/L (3.5-5.1); SODIUM 140 MMOL/L (135-145); TOTAL CARBON DIOXIDE 30.9 MMOL/L (24-32); eGFR > 90 ML/MIN
[2018-04-26] MEDS: metoprolol tartrate 12.5mg (1/2 tablet) PO SCH ×2 (07:23→20:16)
[2018-04-26] MEDS: atorvastatin 10mg tablet PO SCH (07:24)
[2018-04-26] MEDS: docusate sod 100mg capsule PO SCH ×2 (07:24→20:16)
[2018-04-26] MEDS: pantoprazole 40mg Tablet.DR PO SCH (07:24)
[2018-04-26] MEDS: lactobacillus rhamnosus 10,000 MMU CELLS/CAPSULE PO SCH ×2 (07:24→20:16)
[2018-04-26] MEDS: aspirin 325mg tablet, delayed-release (Ecotrin) PO SCH (07:24)
[2018-04-26] MEDS ORDERED: bisacodyl 10mg suppository rectal RC STA (09:11)
[2018-04-26] MEDS: magnesium 4gm in 100ml NS 100 ML IV PRN (09:39)
[2018-04-26] MEDS: sodium chloride 0.45% 1,000 ML IV SCH (16:10)
[2018-04-26] MEDS: insulin glargine (Lantus) pen - multi-dose SQ SCH (21:00)
[2018-04-27] VITALS (11 sets, daily range): BP systolic 85–128; BP diastolic 50–78
[2018-04-27 05:19] LABS: BASOPHILS % (AUTO) 0.4 % (0-1); EOSINOPHILS # (AUTO) 0.5 X10'3 (0-0.9); EOSINOPHILS % (AUTO) 7.1 % (0-6); HEMATOCRIT 32.3 % (35.0-45.0); HEMOGLOBIN 10.4 g/dl (12.0-16.0); LYMPHOCYTES # (AUTO) 2.1 X10'3 (1.1-4.8); LYMPHOCYTES % (AUTO) 27.1 % (21-51); MEAN CORPUSCULAR HEMOGLOBIN 26.8 PG (27.0-31.0); MEAN CORPUSCULAR HGB CONC 32.1 % (33.0-36.5); MEAN CORPUSCULAR VOLUME 83.6 FL (78-98); MONOCYTES # (AUTO) 0.9 X10'3 (0-0.9); MONOCYTES % (AUTO) 11.6 % (2-12); NEUTROPHILS # (AUTO) 4.1 X10'3 (1.8-7.7); NEUTROPHILS % (AUTO) 53.8 % (42-75); RED BLOOD COUNT 3.86 X10'6 (4.20-5.60); RED CELL DISTRIBUTION WIDTH 24.3 % (11.5-14.5); WHITE BLOOD COUNT 7.7 X10'3 (4.5-11.0)
[2018-04-27 05:21] LABS: PLATELET COUNT 283 X10'3 (140-440)
[2018-04-27 05:47] LABS: ALANINE AMINOTRANSFERASE 43 U/L (12-78); ALBUMIN 2.8 G/DL (3.4-5.0); ALBUMIN/GLOBULIN RATIO 0.8 (1.1-1.5); ALKALINE PHOSPHATASE 78 IU/L (46-116); ANION GAP 7 (8-16); ASPARTATE AMINO TRANSFERASE 21 U/L (10-37); BILIRUBIN,TOTAL 0.3 MG/DL (0.1-1.0); BLOOD UREA NITROGEN 10 MG/DL (7-18); BUN/CREATININE RATIO 14.3 (6.6-38.0); CALCIUM 8.3 MG/DL (8.5-10.1); CHLORIDE 101 MMOL/L (99-107); GLUCOSE 100 MG/DL (70-104); MAGNESIUM 2.1 MG/DL (1.5-2.4); PHOSPHORUS 5.2 MG/DL (2.3-4.5); POTASSIUM 4.5 MMOL/L (3.5-5.1); SODIUM 139 MMOL/L (135-145); TOTAL CARBON DIOXIDE 30.8 MMOL/L (24-32); TOTAL PROTEIN 6.4 G/DL (6.4-8.2); eGFR > 90 ML/MIN
[2018-04-27] MEDS: docusate sod 100mg capsule PO SCH (07:59)
[2018-04-27] MEDS: metoprolol tartrate 12.5mg (1/2 tablet) PO SCH (07:59)
[2018-04-27] MEDS: lactobacillus rhamnosus 10,000 MMU CELLS/CAPSULE PO SCH (07:59)
[2018-04-27] MEDS: pantoprazole 40mg Tablet.DR PO SCH (07:59)
[2018-04-27] MEDS: aspirin 325mg tablet, delayed-release (Ecotrin) PO SCH (07:59)
[2018-04-27] MEDS: atorvastatin 10mg tablet PO SCH (07:59)
[2018-04-27] MEDS ORDERED: COL100C PO (09:05)
[2018-04-27] MEDS ORDERED: HYDR-3972 PO (09:05)
[2018-04-27] MEDS: HYDROcodone/acetaminophen 10/325mg tab PO PRN (09:26)
== END 2018-04-27 10:45 | disposition home health service (06) | DRG 234 ==
LOC: SSTAY O 11:11 → PCU 3S 17:53 → PACU 04-22 11:50 → ICU 2S 04-22 13:02
PROVIDERS: ADMIT Thoracic Surgery (Cardiothoracic Vascular Surgery); ATTEND Thoracic Surgery (Cardiothoracic Vascular Surgery)
PROC: 4A023N7 Measurement of Cardiac Sampling and Pressure, Left Heart, Percutaneous Approach (ICD-10-PCS; principal; 2018-04-21)
PROC: B2111ZZ Fluoroscopy of Multiple Coronary Arteries using Low Osmolar Contrast (ICD-10-PCS; 2018-04-21)
PROC: B2151ZZ Fluoroscopy of Left Heart using Low Osmolar Contrast (ICD-10-PCS; 2018-04-21)
PROC: 02100Z9 Bypass Coronary Artery, One Artery from Left Internal Mammary, Open Approach (ICD-10-PCS; 2018-04-22)
PROC: 02100Z8 Bypass Coronary Artery, One Artery from Right Internal Mammary, Open Approach (ICD-10-PCS; 2018-04-22)
PROC: 021009W Bypass Coronary Artery, One Artery from Aorta with Autologous Venous Tissue, Open Approach (ICD-10-PCS; 2018-04-22)
PROC: 06BP4ZZ Excision of Right Saphenous Vein, Percutaneous Endoscopic Approach (ICD-10-PCS; 2018-04-22)
PROC: 5A1221Z Performance of Cardiac Output, Continuous (ICD-10-PCS; 2018-04-22)
PROC: B24BZZ4 Ultrasonography of Heart with Aorta, Transesophageal (ICD-10-PCS; 2018-04-22)
PROC: 05HM33Z Insertion of Infusion Device into Right Internal Jugular Vein, Percutaneous Approach (ICD-10-PCS; 2018-04-22)
PROC: B543ZZA Ultrasonography of Right Jugular Veins, Guidance (ICD-10-PCS; 2018-04-22)
DX: I25.110 Atherosclerotic heart disease of native coronary artery with unstable angina pectoris (principal); E11.9 Type 2 diabetes mellitus without complications; I10 Essential (primary) hypertension; R21 Rash and other nonspecific skin eruption; R94.39 Abnormal result of other cardiovascular function study; E78.5 Hyperlipidemia, unspecified; I44.7 Left bundle-branch block, unspecified; Z90.49 Acquired absence of other specified parts of digestive tract; Z79.899 Other long term (current) drug therapy; Z79.82 Long term (current) use of aspirin; Z79.84 Long term (current) use of oral hypoglycemic drugs; Z87.891 Personal history of nicotine dependence; Z82.49 Family history of ischemic heart disease and other diseases of the circulatory system
CPT/HCPCS: 0232T; 93312; 93325; 93458; 36415; 36600; 71045; 71046; 80048; 80053; 82330; 82435; 82803; 82947; 82948; 83036; 83735; 84100; 84132; 84295; 85018; 85025; 85027; 85347; 85384; 85610; 85730; 86885; 86900; 86901; 86920; 87070; 93005; 93880; 93970; 94002; 94003; 94010; 94760; 97110; 97116; 97161; 97530; 99152; A4620; A6255; A6257; A6258; A6402; A6449; A7000; A7048; C1751; C1769; C9113; G0378; J0690; J1644; J1815; J1885; J2001; J2060; J2150; J2250; J2270; J2370; J2440; J2704; J2720; J3010; J3370; J3475; J3480; J3490; J7030; J7120; P9045; P9047; Q0163; Q9967

== ENCOUNTER 2018-05-30 12:00 | Emergency (ER) | payer MEDICARE, MEDICAID ==
[~2018-05-30] VITALS: Ht 172.7 cm; Wt 89.0 kg
[~2018-05-30 12:00] MED LIST changes: +ASPI81TA52 PO; +ATOR40TA3 PO; +CLIN150C2 PO; +COL100C PO; +FERR325T28 PO; +HYDR-3972 PO; -LISI30TA4 PO; +METF500T PO; +METO-395 PO
[2018-05-30 12:04] VITALS: BP 159/81
== END 2018-05-30 13:19 | disposition home or self-care (01) ==
LOC: ER 12:01
DX: I97.89 Other postprocedural complications and disorders of the circulatory system, not elsewhere classified (principal); I25.10 Atherosclerotic heart disease of native coronary artery without angina pectoris; I10 Essential (primary) hypertension; E11.9 Type 2 diabetes mellitus without complications; Z56.0 Unemployment, unspecified; Z88.2 Allergy status to sulfonamides; Z79.82 Long term (current) use of aspirin; Z79.899 Other long term (current) drug therapy; Z95.1 Presence of aortocoronary bypass graft
CPT/HCPCS: 99281

== ENCOUNTER 2018-06-04 12:07 | Day surgery (SDC) | payer MEDICARE, MEDICAID ==
[2018-06-04] MEDS ORDERED: ACET1TAB12 PO (13:55)
== END 2018-06-04 13:59 | disposition home or self-care (01) ==
LOC: WOUND CARE 12:07
PROVIDERS: ATTEND Surgery
DX: T81.31XA Disruption of external operation (surgical) wound, not elsewhere classified, initial encounter (principal); E11.622 Type 2 diabetes mellitus with other skin ulcer; L98.492 Non-pressure chronic ulcer of skin of other sites with fat layer exposed; E11.65 Type 2 diabetes mellitus with hyperglycemia; I11.9 Hypertensive heart disease without heart failure; I25.110 Atherosclerotic heart disease of native coronary artery with unstable angina pectoris; E78.5 Hyperlipidemia, unspecified; F12.10 Cannabis abuse, uncomplicated; Z79.82 Long term (current) use of aspirin; Z79.899 Other long term (current) drug therapy; Z79.84 Long term (current) use of oral hypoglycemic drugs; Z95.1 Presence of aortocoronary bypass graft; Z90.49 Acquired absence of other specified parts of digestive tract; Z87.891 Personal history of nicotine dependence; Y83.8 Other surgical procedures as the cause of abnormal reaction of the patient, or of later complication, without mention of misadventure at the time of the procedure
CPT/HCPCS: 11045; 36416; 82948; 97605; A6212

== ENCOUNTER 2018-06-09 10:17 | Outpatient (CLI) | payer MEDICARE, MEDICAID ==
[~2018-06-09 10:17] MED LIST changes: +ACET1TAB12 PO; -CLIN150C2 PO; -HYDR-3972 PO
== END 2018-06-09 11:12 | disposition home or self-care (01) ==
LOC: WOUND CARE 10:17 → EDSTATUS 10:30 → WOUND CARE 11:12
PROVIDERS: ATTEND Surgery
DX: T81.31XD Disruption of external operation (surgical) wound, not elsewhere classified, subsequent encounter (principal); E11.622 Type 2 diabetes mellitus with other skin ulcer; L98.492 Non-pressure chronic ulcer of skin of other sites with fat layer exposed; E11.65 Type 2 diabetes mellitus with hyperglycemia; I11.9 Hypertensive heart disease without heart failure; I25.110 Atherosclerotic heart disease of native coronary artery with unstable angina pectoris; E78.5 Hyperlipidemia, unspecified; F12.10 Cannabis abuse, uncomplicated; Z79.82 Long term (current) use of aspirin; Z79.899 Other long term (current) drug therapy; Z79.84 Long term (current) use of oral hypoglycemic drugs; Z95.1 Presence of aortocoronary bypass graft; Z90.49 Acquired absence of other specified parts of digestive tract; Z87.891 Personal history of nicotine dependence; Y83.8 Other surgical procedures as the cause of abnormal reaction of the patient, or of later complication, without mention of misadventure at the time of the procedure
CPT/HCPCS: 36416; 82948; 97606

== ENCOUNTER 2018-06-16 10:25 | Day surgery (SDC) | payer MEDICARE, MEDICAID | END 2018-06-16 13:06 | disposition home or self-care (01) | LOC: WOUND CARE 10:25 | PROVIDERS: ATTEND Surgery | DX: T81.31XD Disruption of external operation (surgical) wound, not elsewhere classified, subsequent encounter (principal); E11.622 Type 2 diabetes mellitus with other skin ulcer; L98.492 Non-pressure chronic ulcer of skin of other sites with fat layer exposed; E11.65 Type 2 diabetes mellitus with hyperglycemia; I11.9 Hypertensive heart disease without heart failure; I25.110 Atherosclerotic heart disease of native coronary artery with unstable angina pectoris; E78.5 Hyperlipidemia, unspecified; F12.10 Cannabis abuse, uncomplicated; Z79.82 Long term (current) use of aspirin; Z79.899 Other long term (current) drug therapy; Z79.84 Long term (current) use of oral hypoglycemic drugs; Z95.1 Presence of aortocoronary bypass graft; Z90.49 Acquired absence of other specified parts of digestive tract; Z87.891 Personal history of nicotine dependence; Y83.8 Other surgical procedures as the cause of abnormal reaction of the patient, or of later complication, without mention of misadventure at the time of the procedure | CPT/HCPCS: 11045; 36416; 82948; 87070; 87075; 87077; 87102; 87186; 97605; A4456 ==

== ENCOUNTER 2018-06-25 10:00 | Day surgery (SDC) | payer MEDICARE, MEDICAID ==
[2018-06-25] MEDS ORDERED: nystatin 15 GM powder TP ONE (12:07)
[2018-06-25] MEDS ORDERED: RIFA300C4 PO (13:46)
[2018-06-25] MEDS ORDERED: NYSPWD TP (13:46)
== END 2018-06-25 12:49 | disposition home or self-care (01) ==
LOC: WOUND CARE 10:00
PROVIDERS: ATTEND Surgery
DX: T81.31XD Disruption of external operation (surgical) wound, not elsewhere classified, subsequent encounter (principal); E11.622 Type 2 diabetes mellitus with other skin ulcer; L98.492 Non-pressure chronic ulcer of skin of other sites with fat layer exposed; E11.65 Type 2 diabetes mellitus with hyperglycemia; I11.9 Hypertensive heart disease without heart failure; I25.110 Atherosclerotic heart disease of native coronary artery with unstable angina pectoris; E78.5 Hyperlipidemia, unspecified; F12.10 Cannabis abuse, uncomplicated; Z79.82 Long term (current) use of aspirin; Z79.899 Other long term (current) drug therapy; Z79.84 Long term (current) use of oral hypoglycemic drugs; Z95.1 Presence of aortocoronary bypass graft; Z90.49 Acquired absence of other specified parts of digestive tract; Z87.891 Personal history of nicotine dependence; Y83.8 Other surgical procedures as the cause of abnormal reaction of the patient, or of later complication, without mention of misadventure at the time of the procedure
CPT/HCPCS: 36416; 82948; 97597; 97598; A4456

== ENCOUNTER 2018-06-29 09:21 | Inpatient (IN) | payer MEDICARE, MEDICAID ==
[~2018-06-29] VITALS: Ht 172.7 cm; Wt 92.4 kg
[~2018-06-29 09:21] MED LIST changes: +NYSPWD TP; +RIFA300C4 PO
[2018-06-29 10:26] LABS: CLARITY,URINE CLEAR (Clear); COLOR,URINE AMBER (Yellow); GLUCOSE, URINE NEGATIVE (Neg); KETONES,URINE TRACE mg/dl (Neg); LEUKOCYTE ESTERASE ,URINE NEGATIVE (Neg); NITRITES, URINE NEGATIVE (Neg); OCCULT BLOOD,URINE NEGATIVE (Neg); PH,URINE 5.5 (4.8-8.0); PROTEIN,URINE NEGATIVE (Neg); UROBILINOGEN,URINE 0.2 E.U/dL (0.2-1.0)
[2018-06-29 10:29] LABS: UA COLLECTION TYPE CLN CATCH MIDSTREAM
[2018-06-29] MEDS ORDERED: clindamycin-Cleocin 900mg/D5W 50 ML IV ONE (10:40)
[2018-06-29] MEDS ORDERED: vancomycin/NS 1 GM ADD-VANTAGE 250 ML IV ONE (10:40)
--- NOTE | 2018-06-29 10:57 | NUR ---
relieving RN for break, pt is resting quietly on gurney, resp even and unlabored, started IV on 1st attempt
[2018-06-29 11:07] LABS: PARTIAL THROMBOPLASTIN TIME 32 SECONDS (22-32); PROTHROMBIN TIME 9.9 SECONDS (9.0-12.0)
[2018-06-29 11:08] LABS: ALANINE AMINOTRANSFERASE 19 U/L (12-78); ALBUMIN 3.2 G/DL (3.4-5.0); ALBUMIN/GLOBULIN RATIO 0.7 (1.1-1.5); ALKALINE PHOSPHATASE 130 IU/L (46-116); ANION GAP 16 (8-16); ASPARTATE AMINO TRANSFERASE 12 U/L (10-37); BILIRUBIN,TOTAL 0.2 MG/DL (0.1-1.0); BLOOD UREA NITROGEN 8 MG/DL (7-18); BUN/CREATININE RATIO 13.6 (6.6-38.0); CALCIUM 9.1 MG/DL (8.5-10.1); CHLORIDE 99 MMOL/L (99-107); CREATININE 0.59 MG/DL (0.40-0.90); GLUCOSE 136 MG/DL (70-104); SODIUM 136 MMOL/L (135-145); TOTAL CARBON DIOXIDE 21.5 MMOL/L (24-32); TOTAL PROTEIN 8.1 G/DL (6.4-8.2); eGFR > 90 ML/MIN
[2018-06-29] MEDS ORDERED: HYDROcodone/acetaminophen 5mg/325mg tablet PO PRN (11:30)
[2018-06-29] MEDS ORDERED: ondansetron/PF 4mg/2ml inj IV PRN (11:30)
[2018-06-29] MEDS ORDERED: morphine 4 MG/ML inj SYRINge IV PRN ×2 (11:30)
[2018-06-29] MEDS ORDERED: mag hydrox/Alum hydrox/simeth 30ml oral suspension PO PRN (11:30)
[2018-06-29] MEDS ORDERED: acetaminophen 325mg tablet PO PRN (11:30)
[2018-06-29] MEDS ORDERED: magnesium hydroxide 30ml (MOM) UD suspension PO PRN (11:30)
[2018-06-29 11:55] LABS: HEMATOCRIT 39.4 % (35.0-45.0); HEMOGLOBIN 12.6 g/dl (12.0-16.0); MEAN CORPUSCULAR HEMOGLOBIN 28.2 PG (27.0-31.0); MEAN CORPUSCULAR VOLUME 87.9 FL (78-98); RED BLOOD COUNT 4.48 X10'6 (4.20-5.60); WHITE BLOOD COUNT 8.9 X10'3 (4.5-11.0)
[2018-06-29 11:56] LABS: BASOPHILS % (AUTO) 0.5 % (0-1); LYMPHOCYTES % (AUTO) 28.8 % (21-51); MEAN CORPUSCULAR HGB CONC 32.1 % (33.0-36.5); MEAN PLATELET VOLUME 6.9 FL (7.4-10.4); MONOCYTES % (AUTO) 8.4 % (2-12); NEUTROPHILS % (AUTO) 59.3 % (42-75); PLATELET COUNT 454 X10'3 (140-440); RED CELL DISTRIBUTION WIDTH 13.1 % (11.5-14.5)
[2018-06-29 12:00] LABS: EOSINOPHILS # (AUTO) 0.3 X10'3 (0-0.9); LYMPHOCYTES # (AUTO) 2.7 X10'3 (1.1-4.8); MONOCYTES # (AUTO) 0.7 X10'3 (0-0.9); NEUTROPHILS # (AUTO) 5.3 X10'3 (1.8-7.7)
[2018-06-29] MEDS: HYDROcodone/acetaminophen 10/325mg tab PO PRN (12:40)
--- NOTE | 2018-06-29 13:25 | NUR ---
RECEIVED PATIENT AND REPORT FROM THE ED. PLACED PATIENT IN ROOM 3019, CALL LIGHT IN REACH. DENIES SOB, CHEST PAIN AND OR NAUSEA. PAGED DME FOR WOUND VAC, PATIENT PLACED IN ISOLATION FOR M.R.S.A. Addendum: 06/29/18 at 1342 by Mesha Londono RN Amended: Links added.
[2018-06-29 13:31] VITALS: BP 131/78
[2018-06-29] MEDS ORDERED: HYDROmorphone inj. 0.5 MG/0.5 ML DISP.SYRIN IV PRN (16:20)
[2018-06-29] MEDS ORDERED: HYDROmorphone 1 mg/ml syringe ONE (16:28)
[2018-06-29] MEDS: metFORMIN 500mg tablet PO SCH (18:22)
[2018-06-29] MEDS: vancomycin inj 1,250 MG in normal saline 250ml IV soln 250 ML IV SCH (18:46)
[2018-06-29 19:00] VITALS: BP 141/86
[2018-06-29] MEDS ORDERED: vancomycin/NS 1 GM ADD-VANTAGE 250 ML IV SCH (20:00)
[2018-06-29] MEDS: docusate sod 100mg capsule PO SCH (20:34)
[2018-06-29 23:00] VITALS: BP 135/84
[2018-06-29] MEDS: diphenhydrAMINE 25mg capsule PO PRN (23:28)
--- NOTE | 2018-06-29 23:48 | NUR ---
PATIENT STATED SHE IS OPEN TO HH SERVICES WITH INTERIM
[2018-06-30] MEDS: vancomycin inj 1,250 MG in normal saline 250ml IV soln 250 ML IV SCH ×3 (02:24→20:42)
[2018-06-30 03:00] VITALS: BP 128/78
[2018-06-30 04:58] LABS: BASOPHILS % (AUTO) 0.4 % (0-1); EOSINOPHILS # (AUTO) 0.3 X10'3 (0-0.9); EOSINOPHILS % (AUTO) 3.1 % (0-6); HEMATOCRIT 37.9 % (35.0-45.0); HEMOGLOBIN 12.4 g/dl (12.0-16.0); LYMPHOCYTES # (AUTO) 2.6 X10'3 (1.1-4.8); LYMPHOCYTES % (AUTO) 29.4 % (21-51); MEAN CORPUSCULAR HEMOGLOBIN 28.6 PG (27.0-31.0); MEAN CORPUSCULAR HGB CONC 32.7 % (33.0-36.5); MEAN CORPUSCULAR VOLUME 87.4 FL (78-98); MEAN PLATELET VOLUME 8.2 FL (7.4-10.4); MONOCYTES # (AUTO) 0.6 X10'3 (0-0.9); MONOCYTES % (AUTO) 7.3 % (2-12); NEUTROPHILS # (AUTO) 5.4 X10'3 (1.8-7.7); NEUTROPHILS % (AUTO) 59.8 % (42-75); PLATELET COUNT 326 X10'3 (140-440); RED BLOOD COUNT 4.34 X10'6 (4.20-5.60); RED CELL DISTRIBUTION WIDTH 13.5 % (11.5-14.5); WHITE BLOOD COUNT 8.9 X10'3 (4.5-11.0)
[2018-06-30 05:27] LABS: CHLORIDE 102 MMOL/L (99-107); GLUCOSE 101 MG/DL (70-104); POTASSIUM 4.1 MMOL/L (3.5-5.1); SODIUM 138 MMOL/L (135-145); TOTAL CARBON DIOXIDE 25.1 MMOL/L (24-32)
[2018-06-30 05:28] LABS: ALBUMIN 2.9 G/DL (3.4-5.0); ANION GAP 11 (8-16); BLOOD UREA NITROGEN 7 MG/DL (7-18); BUN/CREATININE RATIO 10.4 (6.6-38.0); CALCIUM 8.7 MG/DL (8.5-10.1); CREATININE 0.67 MG/DL (0.40-0.90); eGFR > 90 ML/MIN
[2018-06-30 06:00] VITALS: BP_SYST 126; BP_SYST 128; BP_DIAS 54; BP_DIAS 77
--- NOTE | 2018-06-30 06:51 | NUR ---
Patient in room PCU 3019. I have received report from LYN WANG and had the opportunity to ask questions and assume patient care.
[2018-06-30] MEDS: metFORMIN 500mg tablet PO SCH ×2 (08:18→19:04)
[2018-06-30] MEDS: docusate sod 100mg capsule PO SCH ×2 (08:18→20:41)
[2018-06-30] MEDS: metoprolol succinate 25mg (24-HOUR) SR. Tablet PO SCH (08:18)
[2018-06-30] MEDS: aspirin 81mg tablet.DR PO SCH (08:18)
[2018-06-30] MEDS: ferrous sulfate 325mg tablet PO SCH (08:18)
[2018-06-30] MEDS: atorvastatin 20mg tablet PO SCH (08:19)
[2018-06-30] MEDS: enoxaparin 40mg/0.4ml syringe SUBCUT SCH (08:19)
--- NOTE | 2018-06-30 08:32 | NUR ---
JOANA MANDEL IN TO SEE PT
--- NOTE | 2018-06-30 09:47 | NUR ---
PT TAKEN TO CT BY PCT
[2018-06-30 11:00] VITALS: BP 135/76
[2018-06-30] MEDS: diphenhydrAMINE 25mg capsule PO PRN ×2 (12:05→20:46)
[2018-06-30 15:00] VITALS: BP 116/73
--- NOTE | 2018-06-30 16:15 | NUR ---
Received report from LYN Torres from PCU regarding patient. All questions were answered and awaiting arrival of patient to the floor.
--- NOTE | 2018-06-30 16:23 | NUR ---
Problems reprioritized. Patient report given, questions answered & plan of care reviewed with mark chow.
--- NOTE | 2018-06-30 16:30 | NUR ---
Patient arrived on ACCE unit in stable condition. She was placed in a contact precaution room and assessment completed. Will continue to monitor patient for duration of shift. Addendum: 06/30/18 at 1748 by Angeline Mak RN Patient arrived on the unit with wound vac in place, noted placement on midline sternal incision. Patient had no reports of pain and she is alert and oriented.
--- NOTE | 2018-06-30 16:37 | NUR ---
pt transferred to [facility] unit in stable condition. all belongings sent with pt.
[2018-06-30] MEDS ORDERED: VANCOMYCIN LEVEL IV NR (17:30)
--- NOTE | 2018-06-30 18:21 | NUR ---
Problems reprioritized. Patient report given, questions answered & plan of care reviewed with LYN Lowe.
[2018-06-30 19:00] VITALS: BP 138/82
--- NOTE | 2018-06-30 20:00 | NUR ---
Patient arrived on floor via wheelchair from the ACCE unit after receiving report from Mynor NICHOLSON. Patient ambulated to bed from wheel chair with minimal assistance, wound vac on sternal wound at 125mmhg and continuous suction. Patient on air sampling and monitoring, stable at this time no complaint of pain and belongings accompanied
--- NOTE | 2018-06-30 20:35 | NUR ---
Problems reprioritized. Patient report given, questions answered & plan of care reviewed with Moise NICHOLSON.
[2018-06-30] MEDS: lactobacillus rhamnosus 10,000 MMU CELLS/CAPSULE PO SCH (20:41)
[2018-06-30 23:00] VITALS: BP 134/84
[2018-06-30] MEDS: HYDROcodone/acetaminophen 10/325mg tab PO PRN (23:36)
[2018-07-01] MEDS: vancomycin inj 1,250 MG in normal saline 250ml IV soln 250 ML IV SCH (02:00)
[2018-07-01 03:00] VITALS: BP 131/78
[2018-07-01 05:37] LABS: ALBUMIN 2.8 G/DL (3.4-5.0); ANION GAP 9 (8-16); BLOOD UREA NITROGEN 7 MG/DL (7-18); BUN/CREATININE RATIO 10.9 (6.6-38.0); CALCIUM 8.4 MG/DL (8.5-10.1); CHLORIDE 104 MMOL/L (99-107); CREATININE 0.64 MG/DL (0.40-0.90); GLUCOSE 93 MG/DL (70-104); POTASSIUM 3.8 MMOL/L (3.5-5.1); SODIUM 140 MMOL/L (135-145); TOTAL CARBON DIOXIDE 26.8 MMOL/L (24-32); eGFR > 90 ML/MIN
[2018-07-01 06:00] VITALS: BP 136/84
--- NOTE | 2018-07-01 06:10 | NUR ---
Patient in room PCU 3019. I have received report from FELIPE NICHOLSON and had the opportunity to ask questions and assume patient care.
--- NOTE | 2018-07-01 06:21 | NUR ---
[place] documentation: I have reviewed and agree with all interventions, assessments performed and documented by Tatyana NICHOLSON.
--- NOTE | 2018-07-01 06:23 | NUR ---
Problems reprioritized. Patient report given, questions answered & plan of care reviewed with Kenn NICHOLSON.
--- NOTE | 2018-07-01 06:24 | NUR ---
[place] Medication Administration: For this medication-pass time frame, all medication were reviewed, dispensed, administered and documented per hospital policy by Amber NICHOLSON.
[2018-07-01] MEDS: enoxaparin 40mg/0.4ml syringe SUBCUT SCH (07:28)
[2018-07-01] MEDS: aspirin 81mg tablet.DR PO SCH (07:28)
[2018-07-01] MEDS: ferrous sulfate 325mg tablet PO SCH (07:28)
[2018-07-01] MEDS: metoprolol succinate 25mg (24-HOUR) SR. Tablet PO SCH (07:28)
[2018-07-01] MEDS: atorvastatin 20mg tablet PO SCH (07:28)
[2018-07-01] MEDS: docusate sod 100mg capsule PO SCH ×2 (07:28→20:32)
[2018-07-01] MEDS: lactobacillus rhamnosus 10,000 MMU CELLS/CAPSULE PO SCH ×2 (07:28→20:32)
[2018-07-01] MEDS: metFORMIN 500mg tablet PO SCH ×2 (07:36→17:37)
[2018-07-01 10:24] LABS: HEMOGLOBIN 14.5 g/dl (12.0-16.0); MEAN CORPUSCULAR HEMOGLOBIN 29.2 PG (27.0-31.0); MEAN CORPUSCULAR HGB CONC 32.9 % (33.0-36.5); MEAN CORPUSCULAR VOLUME 88.7 FL (78-98); MEAN PLATELET VOLUME 6.5 FL (7.4-10.4); PLATELET COUNT 388 X10'3 (140-440); RED BLOOD COUNT 4.97 X10'6 (4.20-5.60); RED CELL DISTRIBUTION WIDTH 13.3 % (11.5-14.5); WHITE BLOOD COUNT 6.6 X10'3 (4.5-11.0)
[2018-07-01 10:48] LABS: PLATELET ESTIMATE NORMAL; TOTAL CELLS COUNTED 100
[2018-07-01 11:00] VITALS: BP 116/70
--- NOTE | 2018-07-01 12:42 | NUR ---
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 Pt s/p CT with no evidence of abscess per MD notes. Pt currently on CHO controlled diet with documented PO intake 100% meeting nutrient needs with adequate protein to aid in wound healing. LBM 06/30. Will continue to follow. Recommendations: 1) Continue with CHO controlled diet 2) Monitor need for ONS 3) Wt per rx Addendum: 07/01/18 at [address] Amended: Links added.
[2018-07-01] MEDS: diphenhydrAMINE 25mg capsule PO PRN ×2 (15:04→21:43)
[2018-07-01] MEDS: HYDROcodone/acetaminophen 10/325mg tab PO PRN (15:05)
--- NOTE | 2018-07-01 17:15 | NUR ---
LEFT MESSAGE WITH WOUND CARE THAT THE WOUND VAC NEEDS CHANGED EARLY POSSIBLE TOMORROW D/T EARLY TRANSFER TO REHAB.
--- NOTE | 2018-07-01 18:15 | NUR ---
Problems reprioritized. Patient report given, questions answered & plan of care reviewed with SUZETTE NICHOLSON AND LORI NICHOLSON.
[2018-07-01 19:00] VITALS: BP 137/81
--- NOTE | 2018-07-01 19:22 | NUR ---
Patient in room PCU 3019. I have received report from Kenn NICHOLSON and had the opportunity to ask questions and assume patient care.
[2018-07-01 22:30] VITALS: BP 129/75
[2018-07-02 03:00] VITALS: BP 140/85
--- NOTE | 2018-07-02 06:04 | NUR ---
orientee Medication Administration: For this medication-pass time frame, all medication were reviewed, dispensed, administered and documented per hospital policy by vishnu flores.
--- NOTE | 2018-07-02 06:04 | NUR ---
orientee documentation: I have reviewed and agree with all interventions, assessments performed and documented by vishnu flores.
--- NOTE | 2018-07-02 06:17 | NUR ---
Problems reprioritized. Patient report given, questions answered & plan of care reviewed with Jeff NICHOLSON.
--- NOTE | 2018-07-02 06:30 | NUR ---
Patient in room PCU 3019. I have received report from SUZETTE NICHOLSON and had the opportunity to ask questions and assume patient care. WILL CONTINUE TO MONITOR
[2018-07-02 06:40] LABS: ALBUMIN 2.8 G/DL (3.4-5.0); ANION GAP 9 (8-16); BLOOD UREA NITROGEN 6 MG/DL (7-18); BUN/CREATININE RATIO 10.7 (6.6-38.0); CALCIUM 8.2 MG/DL (8.5-10.1); CHLORIDE 103 MMOL/L (99-107); CREATININE 0.56 MG/DL (0.40-0.90); GLUCOSE 110 MG/DL (70-104); POTASSIUM 3.9 MMOL/L (3.5-5.1); SODIUM 138 MMOL/L (135-145); TOTAL CARBON DIOXIDE 25.8 MMOL/L (24-32); eGFR > 90 ML/MIN
[2018-07-02 07:00] VITALS: BP 153/94
[2018-07-02] MEDS: docusate sod 100mg capsule PO SCH (07:23)
[2018-07-02] MEDS: atorvastatin 20mg tablet PO SCH (07:24)
[2018-07-02] MEDS: aspirin 81mg tablet.DR PO SCH (07:24)
[2018-07-02] MEDS: metoprolol succinate 25mg (24-HOUR) SR. Tablet PO SCH (07:24)
[2018-07-02] MEDS: ferrous sulfate 325mg tablet PO SCH (07:24)
[2018-07-02] MEDS: enoxaparin 40mg/0.4ml syringe SUBCUT SCH (07:25)
[2018-07-02 07:28] LABS: BASOPHILS % (AUTO) 0.4 % (0-1); EOSINOPHILS # (AUTO) 0.4 X10'3 (0-0.9); EOSINOPHILS % (AUTO) 4.4 % (0-6); HEMATOCRIT 38.9 % (35.0-45.0); HEMOGLOBIN 12.9 g/dl (12.0-16.0); LYMPHOCYTES # (AUTO) 2.6 X10'3 (1.1-4.8); LYMPHOCYTES % (AUTO) 31.6 % (21-51); MEAN CORPUSCULAR HEMOGLOBIN 28.6 PG (27.0-31.0); MEAN CORPUSCULAR VOLUME 86.6 FL (78-98); MEAN PLATELET VOLUME 7.8 FL (7.4-10.4); MONOCYTES # (AUTO) 0.7 X10'3 (0-0.9); MONOCYTES % (AUTO) 8.2 % (2-12); NEUTROPHILS # (AUTO) 4.6 X10'3 (1.8-7.7); NEUTROPHILS % (AUTO) 55.4 % (42-75); RED BLOOD COUNT 4.49 X10'6 (4.20-5.60); RED CELL DISTRIBUTION WIDTH 13.6 % (11.5-14.5)
[2018-07-02 07:31] LABS: PLATELET COUNT 485 X10'3 (140-440); WHITE BLOOD COUNT 8.2 X10'3 (4.5-11.0)
[2018-07-02] MEDS ORDERED: VANCOMYCIN LEVEL IV ONE (09:30)
[2018-07-02] MEDS: metFORMIN 500mg tablet PO SCH (10:04)
[2018-07-02] MEDS: lactobacillus rhamnosus 10,000 MMU CELLS/CAPSULE PO SCH (10:04)
[2018-07-02 11:00] VITALS: BP 154/86
[2018-07-02] MEDS: HYDROcodone/acetaminophen 10/325mg tab PO PRN (12:34)
--- NOTE | 2018-07-02 13:27 | NUR ---
CALLED REPORT TO [facility] NURSE BURGOS, AWAITING TRANSPORT SERVICES TO PICK PT UP. WILL CONTINUE TO MONITOR.
--- NOTE | 2018-07-02 13:40 | NUR ---
PT PIV REMOVED CANNULA INTACT, DRESSING APPLIED, TELE REMOVED, PICC REMAINED IN PLACED PER PROVIDER ORDER. PT WHEELED OUT AND LEFT WITH MEDICAL TRANSPORT.
--- NOTE | 2018-07-02 13:51 | NUR ---
[place] documentation: I have reviewed and agree with all interventions, assessments performed and documented by Michelle NICHOLSON. [place] Medication Administration: For this medication-pass time frame, all medication were reviewed, dispensed, administered and documented per hospital policy by Michelle NICHOLSON.
[2018-07-02] MEDS ORDERED: vancomycin inj 1,250 MG in normal saline 250ml IV soln 250 ML IV SCH (14:00)
[2018-07-03] MEDS ORDERED: VANCOMYCIN LEVEL IV ONE (07:30)
== END 2018-07-02 13:40 | DRG 863 ==
LOC: ER 09:22 → ED HOLD 11:29 → PCU 3S 13:10 → CMPBEDREQ 19:27 → MED 3N 06-30 16:30 → PCU 3S 06-30 19:34
PROVIDERS: ADMIT Internal Medicine; ATTEND Internal Medicine
PROC: 02HV33Z Insertion of Infusion Device into Superior Vena Cava, Percutaneous Approach (ICD-10-PCS; principal; 2018-07-02)
PROC: B548ZZA Ultrasonography of Superior Vena Cava, Guidance (ICD-10-PCS; 2018-07-02)
DX: T81.41XA Infection following a procedure, superficial incisional surgical site, initial encounter (principal); B95.62 Methicillin resistant Staphylococcus aureus infection as the cause of diseases classified elsewhere; E78.5 Hyperlipidemia, unspecified; E11.65 Type 2 diabetes mellitus with hyperglycemia; I10 Essential (primary) hypertension; I25.10 Atherosclerotic heart disease of native coronary artery without angina pectoris; Z60.2 Problems related to living alone; Y83.2 Surgical operation with anastomosis, bypass or graft as the cause of abnormal reaction of the patient, or of later complication, without mention of misadventure at the time of the procedure; Z95.1 Presence of aortocoronary bypass graft; Z88.2 Allergy status to sulfonamides; Z56.0 Unemployment, unspecified; Z90.49 Acquired absence of other specified parts of digestive tract; Z98.891 History of uterine scar from previous surgery; Z79.82 Long term (current) use of aspirin; Z79.899 Other long term (current) drug therapy; Z79.84 Long term (current) use of oral hypoglycemic drugs; Z80.8 Family history of malignant neoplasm of other organs or systems; Z82.49 Family history of ischemic heart disease and other diseases of the circulatory system; Z83.3 Family history of diabetes mellitus; Y92.89 Other specified places as the place of occurrence of the external cause
CPT/HCPCS: 36415; 36569; 71045; 76937; 80048; 80053; 80202; 81003; 82948; 83605; 84145; 84484; 85025; 85610; 85730; 87040; 87070; 93005; 96365; 99285; G0378; J1170; J1650; J2270; J3370; J7030; Q0163

== ENCOUNTER 2018-08-30 09:26 | Emergency (ER) | payer MEDICARE, MEDICAID ==
[~2018-08-30] VITALS: Ht 172.7 cm; Wt 98.9 kg
--- NOTE | 2018-08-30 10:09 | NUR ---
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
[2018-08-30 10:12] VITALS: BP 158/70
[2018-08-30 10:24] LABS: BASOPHILS % (AUTO) 0.7 % (0-1); EOSINOPHILS # (AUTO) 0.2 X10'3 (0-0.9); EOSINOPHILS % (AUTO) 3.3 % (0-6); HEMATOCRIT 39.9 % (35.0-45.0); HEMOGLOBIN 13.9 g/dl (12.0-16.0); LYMPHOCYTES # (AUTO) 2.7 X10'3 (1.1-4.8); MEAN CORPUSCULAR HEMOGLOBIN 29.9 PG (27.0-31.0); MEAN CORPUSCULAR HGB CONC 34.7 g/dL (33.0-36.5); MEAN PLATELET VOLUME 8.2 FL (7.4-10.4); MONOCYTES # (AUTO) 0.5 X10'3 (0-0.9); MONOCYTES % (AUTO) 7.4 % (2-12); NEUTROPHILS # (AUTO) 3.6 X10'3 (1.8-7.7); NEUTROPHILS % (AUTO) 50.6 % (42-75); PLATELET COUNT 344 X10'3 (140-440); RED BLOOD COUNT 4.64 X10'6 (4.20-5.60); RED CELL DISTRIBUTION WIDTH 14.9 % (11.5-14.5); WHITE BLOOD COUNT 7.1 X10'3 (4.5-11.0)
[2018-08-30 10:37] LABS: ALANINE AMINOTRANSFERASE 39 U/L (12-78); ALBUMIN 3.4 G/DL (3.4-5.0); ALBUMIN/GLOBULIN RATIO 0.9 (1.1-1.5); ALKALINE PHOSPHATASE 90 IU/L (46-116); ANION GAP 9 (8-16); ASPARTATE AMINO TRANSFERASE 23 U/L (10-37); BLOOD UREA NITROGEN 11 MG/DL (7-18); BUN/CREATININE RATIO 14.7 (6.6-38.0); CALCIUM 8.8 MG/DL (8.5-10.1); CHLORIDE 100 MMOL/L (99-107); CREATININE 0.75 MG/DL (0.40-0.90); GLUCOSE 257 MG/DL (70-104); POTASSIUM 3.9 MMOL/L (3.5-5.1); SODIUM 132 MMOL/L (135-145); TOTAL CARBON DIOXIDE 22.9 MMOL/L (24-32); TOTAL PROTEIN 7.3 G/DL (6.4-8.2); eGFR 86 ML/MIN
[2018-08-30 10:39] LABS: BILIRUBIN,TOTAL 0.1 MG/DL (0.1-1.0)
[2018-08-30] MEDS ORDERED: DOXY100C2 PO (11:14)
[2018-09-06] MEDS ORDERED: FURO40TA4 PO (14:59)
[2018-09-06] MEDS ORDERED: LISI10TA4 PO (14:59)
== END 2018-08-30 12:16 | disposition home or self-care (01) ==
LOC: ER 09:27
DX: T81.31XA Disruption of external operation (surgical) wound, not elsewhere classified, initial encounter (principal); A49.02 Methicillin resistant Staphylococcus aureus infection, unspecified site; E11.9 Type 2 diabetes mellitus without complications; I25.10 Atherosclerotic heart disease of native coronary artery without angina pectoris; I10 Essential (primary) hypertension; Z56.0 Unemployment, unspecified; Z60.2 Problems related to living alone; Z79.899 Other long term (current) drug therapy; Z79.82 Long term (current) use of aspirin; Z95.1 Presence of aortocoronary bypass graft; Z88.2 Allergy status to sulfonamides; Y83.8 Other surgical procedures as the cause of abnormal reaction of the patient, or of later complication, without mention of misadventure at the time of the procedure; Y92.89 Other specified places as the place of occurrence of the external cause
CPT/HCPCS: 36415; 80053; 83605; 84145; 85025; 87040; 87070; 87077; 87186; 99285

== ENCOUNTER 2018-10-06 15:12 | Emergency (ER) | payer MEDICARE, MEDICAID ==
[~2018-10-06] VITALS: Ht 172.7 cm; Wt 220.0 kg
[~2018-10-06 15:12] MED LIST changes: -ATOR40TA3 PO; +ATOR40TA7 PO; +FURO40TA4 PO; +LISI10TA4 PO
[2018-10-06 16:59] LABS: ALANINE AMINOTRANSFERASE 59 U/L (12-78); ALBUMIN 3.8 G/DL (3.4-5.0); ALKALINE PHOSPHATASE 87 IU/L (46-116); ANION GAP 9 (8-16); ASPARTATE AMINO TRANSFERASE 32 U/L (10-37); BILIRUBIN,TOTAL 0.3 MG/DL (0.1-1.0); BLOOD UREA NITROGEN 12 MG/DL (7-18); BUN/CREATININE RATIO 17.6 (6.6-38.0); CALCIUM 9.4 MG/DL (8.5-10.1); CHLORIDE 103 MMOL/L (99-107); CREATININE 0.68 MG/DL (0.40-0.90); GLUCOSE 193 MG/DL (70-104); POTASSIUM 3.7 MMOL/L (3.5-5.1); SODIUM 138 MMOL/L (135-145); TOTAL CARBON DIOXIDE 25.9 MMOL/L (24-32); TOTAL PROTEIN 7.6 G/DL (6.4-8.2); eGFR > 90 ML/MIN
[2018-10-06 17:36] LABS: HEMATOCRIT 40.8 % (35.0-45.0); MEAN CORPUSCULAR HEMOGLOBIN 29.7 PG (27.0-31.0); MEAN CORPUSCULAR HGB CONC 34.3 g/dL (33.0-36.5); MEAN CORPUSCULAR VOLUME 86.6 FL (78-98); RED BLOOD COUNT 4.71 X10'6 (4.20-5.60); RED CELL DISTRIBUTION WIDTH 13.7 % (11.5-14.5)
[2018-10-06 17:45] LABS: MEAN PLATELET VOLUME 7.5 FL (7.4-10.4); PLATELET COUNT 320 X10'3 (140-440)
[2018-10-06 17:47] LABS: WHITE BLOOD COUNT 7.4 X10'3 (4.5-11.0)
[2018-10-06 17:55] LABS: CLARITY,URINE SLIGHTLY CLOUDY (Clear); COLOR,URINE YELLOW (Yellow); GLUCOSE, URINE NEGATIVE (Neg); KETONES,URINE NEGATIVE (Neg); LEUKOCYTE ESTERASE ,URINE NEGATIVE (Neg); NITRITES, URINE NEGATIVE (Neg); OCCULT BLOOD,URINE NEGATIVE (Neg); PROTEIN,URINE NEGATIVE (Neg); UROBILINOGEN,URINE 0.2 E.U/dL (0.2-1.0)
[2018-10-06 18:01] LABS: UA COLLECTION TYPE CLN CATCH MIDSTREAM
[2018-10-06 18:03] LABS: BACTERIA,URINE FEW /HPF (Neg); CAL OXALATE CRYSTALS 4+ /HPF (NEGATIVE); MUCUS STRANDS MODERATE /LPF (Neg); RBC,URINE NONE SEEN /HPF (0-2); SQUAMOUS EPITHELIAL CELL,UR FEW /LPF (FEW); WBC,URINE 0-4 /HPF (0-4)
[2018-10-06 18:16] LABS: TOTAL CELLS COUNTED 100
[2018-10-06 18:17] VITALS: BP 129/93
[2018-10-06 18:17] LABS: PLATELET ESTIMATE NORMAL
[2018-10-06 18:22] LABS: URINE HCG NEGATIVE (NEG)
== END 2018-10-06 18:19 | disposition home or self-care (01) ==
LOC: ER 15:14
DX: R23.2 Flushing (principal); M54.2 Cervicalgia; I10 Essential (primary) hypertension; I25.10 Atherosclerotic heart disease of native coronary artery without angina pectoris; E11.9 Type 2 diabetes mellitus without complications; Z95.1 Presence of aortocoronary bypass graft; Z56.0 Unemployment, unspecified; Z88.2 Allergy status to sulfonamides; Z79.82 Long term (current) use of aspirin
CPT/HCPCS: 36415; 80053; 81001; 81025; 82948; 84443; 85025; 99283

== ENCOUNTER 2023-07-21 14:00 | Emergency (ER) | payer MEDICARE, MEDICAID ==
[~2023-07-21] VITALS: Ht 172.7 cm; Wt 73.1 kg
[~2023-07-21 14:00] MED LIST changes: +LISI10TA27 PO; -LISI10TA4 PO; -RIFA300C4 PO; +RIFA300C9 PO
[2023-07-21] MEDS ORDERED: LIDOcaine 1% 30ml preserv. free vial IJ ONE (16:40)
[2023-07-21 18:18] VITALS: BP 142/80; PULSE 80; RESP 18; TEMP 98.4; O2SAT 100
== END 2023-07-21 18:24 | disposition home or self-care (01) ==
LOC: ER 14:00
DX: L02.413 Cutaneous abscess of right upper limb (principal); I10 Essential (primary) hypertension; E11.9 Type 2 diabetes mellitus without complications; Z88.2 Allergy status to sulfonamides; Z79.1 Long term (current) use of non-steroidal anti-inflammatories (NSAID); Z79.82 Long term (current) use of aspirin; Z79.899 Other long term (current) drug therapy
CPT/HCPCS: 10060; 99282; A6266; A6449

== ENCOUNTER 2023-07-23 10:50 | Emergency (ER) | payer MEDICARE, MEDICAID ==
[~2023-07-23] VITALS: Ht 172.7 cm; Wt 71.8 kg
[2023-07-23 10:57] VITALS: TEMP 98
[2023-07-23 12:59] VITALS: BP 109/68; PULSE 61; RESP 16; O2SAT 97
== END 2023-07-23 13:07 | disposition home or self-care (01) ==
LOC: ER 10:51
DX: L02.411 Cutaneous abscess of right axilla (principal); Z48.00 Encounter for change or removal of nonsurgical wound dressing; Z88.2 Allergy status to sulfonamides; Z79.899 Other long term (current) drug therapy; Z79.82 Long term (current) use of aspirin; I25.10 Atherosclerotic heart disease of native coronary artery without angina pectoris; I10 Essential (primary) hypertension; E11.9 Type 2 diabetes mellitus without complications; Z56.0 Unemployment, unspecified; Z95.5 Presence of coronary angioplasty implant and graft
CPT/HCPCS: 99281; A6258; A6266

== ENCOUNTER 2023-07-31 18:50 | Emergency (ER) | payer MEDICARE, MEDICAID ==
[~2023-07-31] VITALS: Ht 172.7 cm; Wt 71.8 kg
[2023-07-31] MEDS ORDERED: acetaminophen 325mg tablet PO STA (19:16)
[2023-07-31 20:33] LABS: BILIRUBIN,URINE NEGATIVE (Neg); CLARITY,URINE CLEAR (Clear); COLOR,URINE YELLOW (Yellow); GLUCOSE, URINE NEGATIVE (Neg); KETONES,URINE NEGATIVE (Neg); LEUKOCYTE ESTERASE ,URINE NEGATIVE (Neg); NITRITES, URINE NEGATIVE (Neg); OCCULT BLOOD,URINE NEGATIVE (Neg); PROTEIN,URINE NEGATIVE (Neg); UROBILINOGEN,URINE 0.2 E.U/dL (0.2-1.0)
[2023-07-31 20:37] LABS: URINE HCG NEGATIVE (NEG)
[2023-07-31 20:48] LABS: UA COLLECTION TYPE CLN CATCH MIDSTREAM
[2023-07-31 20:50] LABS: ALBUMIN 3.5 G/DL (3.4-5.0); ANION GAP 11 (8-16); BLOOD UREA NITROGEN 18 MG/DL (7-18); BUN/CREATININE RATIO 23.7 (10.0-20.0); CALCIUM 9.2 MG/DL (8.5-10.1); CHLORIDE 102 MMOL/L (99-107); CREATININE 0.76 MG/DL (0.40-0.90); GLUCOSE 105 MG/DL (70-104); POTASSIUM 3.8 MMOL/L (3.5-5.1); SODIUM 138 MMOL/L (135-145); TOTAL CARBON DIOXIDE 24.9 MMOL/L (24-32); eCRCL 94 ML/MIN; eGFR 82 ML/MIN
[2023-07-31] MEDS ORDERED: LORazepam 2 mg/ml vial IV ONE (20:55)
[2023-07-31] MEDS ORDERED: normal saline 500ml IV soln 500 ML IV SCH (20:55)
[2023-07-31 21:25] LABS: URINE AMPHETAMINE SCREEN NEGATIVE (Neg); URINE BARBITUATE SCREEN NEGATIVE (Neg); URINE BENZODIAZEPINES SCREEN NEGATIVE (Neg); URINE CANNABINOID SCREEN POSITIVE (Neg); URINE COCAINE SCREEN NEGATIVE (Neg); URINE METHADONE SCREEN NEGATIVE (Neg); URINE OPIATE SCREEN NEGATIVE (Neg); URINE PHENCYCLIDINE SCREEN NEGATIVE (Neg)
[2023-07-31 21:45] LABS: BASOPHILS % (AUTO) 0.4 % (0-1); EOSINOPHILS # (AUTO) 0.2 X10'3 (0-0.9); EOSINOPHILS % (AUTO) 2.4 % (0-6); HEMATOCRIT 40.6 % (35.0-45.0); HEMOGLOBIN 13.7 g/dl (12.0-16.0); LYMPHOCYTES % (AUTO) 46.2 % (21-51); MEAN CORPUSCULAR HGB CONC 33.9 g/dL (33.0-36.5); MEAN CORPUSCULAR VOLUME 88.5 FL (78-98); MONOCYTES # (AUTO) 0.6 X10'3 (0-0.9); MONOCYTES % (AUTO) 9.3 % (2-12); NEUTROPHILS # (AUTO) 2.7 X10'3 (1.8-7.7); NEUTROPHILS % (AUTO) 41.7 % (42-75); RED BLOOD COUNT 4.58 X10'6 (4.20-5.60); WHITE BLOOD COUNT 6.5 X10'3 (4.5-11.0)
[2023-07-31 22:13] LABS: MEAN PLATELET VOLUME 8.8 FL (7.4-10.4); PLATELET COUNT 274 X10'3 (140-440)
[2023-07-31 22:17] VITALS: BP 126/72; PULSE 72; RESP 16; TEMP 98; O2SAT 95
== END 2023-07-31 22:19 | disposition home or self-care (01) ==
LOC: ER 18:51
DX: F41.9 Anxiety disorder, unspecified (principal); E86.0 Dehydration; I11.0 Hypertensive heart disease with heart failure; E11.9 Type 2 diabetes mellitus without complications; Z88.2 Allergy status to sulfonamides; Z79.899 Other long term (current) drug therapy
CPT/HCPCS: 36415; 71045; 80048; 80305; 81003; 81025; 82948; 83605; 84145; 84484; 85025; 87040; 93005; 96374; 99285; J2060; J7040

== ENCOUNTER 2023-12-23 18:58 | Emergency (ER) | payer BC, MEDICAID ==
[~2023-12-23] VITALS: Ht 172.7 cm; Wt 90.9 kg
[~2023-12-23 18:58] MED LIST changes: -ACET1TAB12 PO; +AMIO200T67 PO; +ATOR-2 PO; -ATOR40TA7 PO; -BLOO1EAC70 MC; +CARV-50 PO; -COL100C PO; +DAPA10TA PO; +DIPH25CA83 PO; -FERR325T28 PO; -FURO40TA4 PO; -LISI10TA27 PO; +METF-438 PO; -METF500T PO; -METO-395 PO; -NYSPWD TP; -RIFA300C9 PO; +SACU1TAB PO; +SPIR25TA5 PO
[2023-12-23 20:58] LABS: BASOPHILS % (AUTO) 0.3 % (0-1); EOSINOPHILS # (AUTO) 0.6 X10'3 (0-0.9); EOSINOPHILS % (AUTO) 7.2 % (0-6); HEMATOCRIT 47.3 % (35.0-45.0); LYMPHOCYTES # (AUTO) 2.9 X10'3 (1.1-4.8); LYMPHOCYTES % (AUTO) 36.5 % (21-51); MEAN CORPUSCULAR HEMOGLOBIN 30.7 PG (27.0-31.0); MEAN CORPUSCULAR HGB CONC 33.9 g/dL (33.0-36.5); MEAN CORPUSCULAR VOLUME 90.6 FL (78-98); MEAN PLATELET VOLUME 8.7 FL (7.4-10.4); MONOCYTES # (AUTO) 0.6 X10'3 (0-0.9); MONOCYTES % (AUTO) 7.2 % (2-12); NEUTROPHILS # (AUTO) 3.9 X10'3 (1.8-7.7); NEUTROPHILS % (AUTO) 48.8 % (42-75); PLATELET COUNT 275 X10'3 (140-440); RED BLOOD COUNT 5.22 X10'6 (4.20-5.60); RED CELL DISTRIBUTION WIDTH 13.4 % (11.5-14.5); WHITE BLOOD COUNT 7.9 X10'3 (4.5-11.0)
[2023-12-23 21:22] LABS: ALBUMIN 3.6 G/DL (3.4-5.0); ANION GAP 11 (8-16); BLOOD UREA NITROGEN 16 MG/DL (7-18); BUN/CREATININE RATIO 19.5 (10.0-20.0); CALCIUM 9.6 MG/DL (8.5-10.1); CHLORIDE 105 MMOL/L (99-107); CREATININE 0.82 MG/DL (0.40-0.90); GLUCOSE 161 MG/DL (70-104); PRO BRAIN NATRIURETIC PEPTIDE 46 PG/ML (0-125); SODIUM 140 MMOL/L (135-145); TOTAL CARBON DIOXIDE 23.8 MMOL/L (24-32); eCRCL 86 ML/MIN; eGFR 75 ML/MIN
[2023-12-24] MEDS: triamcinolone acetonide 40mg/ml inj IM ONE (01:12)
[2023-12-24 01:24] VITALS: BP 125/65; PULSE 53; RESP 15; TEMP 98.4; O2SAT 94
== END 2023-12-24 01:25 | disposition home or self-care (01) ==
LOC: ER 18:59
DX: R21 Rash and other nonspecific skin eruption (principal); T50.905A Adverse effect of unspecified drugs, medicaments and biological substances, initial encounter; Y92.89 Other specified places as the place of occurrence of the external cause; I25.10 Atherosclerotic heart disease of native coronary artery without angina pectoris; I10 Essential (primary) hypertension; E11.9 Type 2 diabetes mellitus without complications; Z85.9 Personal history of malignant neoplasm, unspecified; Z90.49 Acquired absence of other specified parts of digestive tract; Z95.1 Presence of aortocoronary bypass graft; Z88.2 Allergy status to sulfonamides; Z79.82 Long term (current) use of aspirin; Z79.899 Other long term (current) drug therapy; Z56.0 Unemployment, unspecified; Z60.2 Problems related to living alone
CPT/HCPCS: 36415; 71045; 80048; 83880; 84484; 85025; 93005; 96372; 99285; J3301

== ENCOUNTER 2024-01-02 10:14 | Emergency (ER) | payer BC, MEDICAID ==
[~2024-01-02] VITALS: Ht 172.7 cm; Wt 89.3 kg
[2024-01-02 10:32] VITALS: BP 152/73; PULSE 56; O2SAT 96
[2024-01-02] MEDS: LIDOcaine 5% patch TP STA (11:16)
[2024-01-02] MEDS ORDERED: LIDO700A32 TOP (11:28)
[2024-01-02 11:44] VITALS: RESP 17; TEMP 98.1
== END 2024-01-02 11:46 | disposition home or self-care (01) ==
LOC: ER 10:14
DX: M25.512 Pain in left shoulder (principal); I25.10 Atherosclerotic heart disease of native coronary artery without angina pectoris; I10 Essential (primary) hypertension; E11.9 Type 2 diabetes mellitus without complications; Z85.9 Personal history of malignant neoplasm, unspecified; Z90.49 Acquired absence of other specified parts of digestive tract; Z95.1 Presence of aortocoronary bypass graft; Z60.2 Problems related to living alone; Z56.0 Unemployment, unspecified; Z88.2 Allergy status to sulfonamides; Z79.82 Long term (current) use of aspirin; Z79.899 Other long term (current) drug therapy
CPT/HCPCS: 73030; 99284

== ENCOUNTER 2024-02-01 18:09 | Emergency (ER) | payer BC, MEDICAID ==
[~2024-02-01] VITALS: Ht 172.7 cm; Wt 90.0 kg
[~2024-02-01 18:09] MED LIST changes: +LIDO700A32 TOP
[2024-02-01] MEDS: LORazepam 1 MG tablet PO ONE (20:18)
[2024-02-01 20:31] LABS: APTT 27 SECONDS (22-32); PROTHROMBIN TIME 10.3 SECONDS (9.0-12.0)
[2024-02-01 20:36] LABS: ALANINE AMINOTRANSFERASE 33 U/L (12-78); ALBUMIN 3.9 G/DL (3.4-5.0); ALKALINE PHOSPHATASE 88 IU/L (46-116); ANION GAP 11 (8-16); ASPARTATE AMINO TRANSFERASE 26 U/L (10-37); BILIRUBIN,TOTAL 0.3 MG/DL (0.1-1.0); BLOOD UREA NITROGEN 20 MG/DL (7-18); BUN/CREATININE RATIO 24.1 (10.0-20.0); CALCIUM 9.7 MG/DL (8.5-10.1); CHLORIDE 103 MMOL/L (99-107); CREATININE 0.83 MG/DL (0.40-0.90); GLUCOSE 183 MG/DL (70-104); POTASSIUM 3.6 MMOL/L (3.5-5.1); SODIUM 139 MMOL/L (135-145); TOTAL CARBON DIOXIDE 24.9 MMOL/L (24-32); TOTAL PROTEIN 7.7 G/DL (6.4-8.2); eCRCL 85 ML/MIN; eGFR 74 ML/MIN
[2024-02-01 20:46] LABS: FREE T4 (FREE THYROXINE) 0.86 NG/DL (0.73-1.40); PRO BRAIN NATRIURETIC PEPTIDE 66 PG/ML (0-125); THYROID STIMULATING HORMONE 7.05 ulU/ml (0.34-4.50)
[2024-02-01 21:04] LABS: BASOPHILS % (AUTO) 0.6 % (0-1); EOSINOPHILS # (AUTO) 0.1 X10'3 (0-0.9); EOSINOPHILS % (AUTO) 1.8 % (0-6); HEMATOCRIT 46.6 % (35.0-45.0); HEMOGLOBIN 15.5 g/dl (12.0-16.0); LYMPHOCYTES # (AUTO) 3.6 X10'3 (1.1-4.8); LYMPHOCYTES % (AUTO) 45.1 % (21-51); MEAN CORPUSCULAR HEMOGLOBIN 30.8 PG (27.0-31.0); MEAN CORPUSCULAR HGB CONC 33.3 g/dL (33.0-36.5); MEAN CORPUSCULAR VOLUME 92.4 FL (78-98); MEAN PLATELET VOLUME 7.5 FL (7.4-10.4); MONOCYTES # (AUTO) 0.7 X10'3 (0-0.9); MONOCYTES % (AUTO) 8.7 % (2-12); NEUTROPHILS # (AUTO) 3.5 X10'3 (1.8-7.7); NEUTROPHILS % (AUTO) 43.8 % (42-75); PLATELET COUNT 261 X10'3 (140-440); RED BLOOD COUNT 5.05 X10'6 (4.20-5.60); RED CELL DISTRIBUTION WIDTH 14.6 % (11.5-14.5)
[2024-02-01] MEDS ORDERED: LORA-269 PO (22:22)
[2024-02-01 22:31] VITALS: BP 173/99; PULSE 66; RESP 16; TEMP 98.9; O2SAT 95
== END 2024-02-01 22:41 | disposition home or self-care (01) ==
LOC: ER 18:09
DX: I10 Essential (primary) hypertension (principal); I25.10 Atherosclerotic heart disease of native coronary artery without angina pectoris; E11.9 Type 2 diabetes mellitus without complications; R79.1 Abnormal coagulation profile; Z88.2 Allergy status to sulfonamides; Z79.899 Other long term (current) drug therapy; Z79.82 Long term (current) use of aspirin; Z90.49 Acquired absence of other specified parts of digestive tract
CPT/HCPCS: 36415; 71045; 80053; 83880; 84439; 84443; 84484; 85025; 85610; 85730; 93005; 99285

== ENCOUNTER 2024-02-04 16:35 | Emergency (ER) | payer BC, MEDICAID ==
[~2024-02-04] VITALS: Ht 172.7 cm; Wt 90.9 kg
[~2024-02-04 16:35] MED LIST changes: +LORA-269 PO
[2024-02-04 16:37] VITALS: BP 178/81; PULSE 69; RESP 16; O2SAT 97
[2024-02-04] MEDS ORDERED: HYDR-3686 PO (17:12)
[2024-02-04 17:49] VITALS: TEMP 98.7
== END 2024-02-04 17:51 | disposition home or self-care (01) ==
LOC: ER 16:36
DX: L92.8 Other granulomatous disorders of the skin and subcutaneous tissue (principal); I25.10 Atherosclerotic heart disease of native coronary artery without angina pectoris; I10 Essential (primary) hypertension; E11.9 Type 2 diabetes mellitus without complications; Z90.49 Acquired absence of other specified parts of digestive tract; Z95.1 Presence of aortocoronary bypass graft; Z60.2 Problems related to living alone; Z56.0 Unemployment, unspecified; Z76.0 Encounter for issue of repeat prescription; Z88.2 Allergy status to sulfonamides; Z79.899 Other long term (current) drug therapy; Z79.82 Long term (current) use of aspirin
CPT/HCPCS: 99283